=== PATIENT | female | born 1940 | race Caucasian/White ===

== ENCOUNTER 2021-03-15 16:26 | Inpatient (IN) | payer MEDICARE ==
--- NOTE | 2021-03-15 17:14 | CT ---
EXAMINATION TYPE: CT brain wo con DATE OF EXAM: 03/15/2021 COMPARISON: None HISTORY: Right sided facial droop. CT DLP: 1079.8 mGycm Automated exposure control for dose reduction was used. Images of the brain obtained without contrast. There is cerebral cortical atrophy. There is enlargement of the frontal horn right lateral ventricle related to old frontal lobe infarct. There is hypodensity in the right frontal lobe newsome-white matter . There is no mass effect or midline shift. There is no sign of intracranial hemorrhage. The calvariu m is intact. IMPRESSION: Cerebral atrophy. Old right frontal lobe infarct. No acute intracranial abnormality.
--- NOTE | 2021-03-15 17:40 | CT ---
EXAMINATION TYPE: CT angio head neck DATE OF EXAM: 03/15/2021 COMPARISON: None HISTORY: Right sided facial droop. CT DLP: 415 mGycm Automated exposure control for dose reduction was used. CONTRAST: Performed with IV Contrast, patient injected with 65 mL of Isovue 370. Images obtained from the aortic arch to the vertex of the brain without IV contrast. There are Three- D postprocessed images. There is bilateral arterial flow in the subclavian arteries. There is normal branching pattern of the great vessels. There is arterial flow in the common internal and external carotid arteries bilateral ly. There is arterial flow in both vertebral arteries. There is some fusiform stenosis of the right i nternal carotid artery extending from the bifurcation to the [place] of [place]. Lumen is narrowed appr oximately 40% in diameter there is arterial flow in the vertebral basilar artery system. There is james y little flow in the supraclinoid or infraclinoid right internal carotid artery. The anterior cerebra l arteries appear to fill mostly through the anterior communicating artery. There is a very diminutiv e right middle cerebral artery. There is very little arterial flow in the right middle cerebral arter y in the sylvian fissure. There is normal enhancement of the venous sinuses. There is no mass effect. 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 There is decreased size and arterial flow seen in the right middle cerebral artery. There is hemodynamic stenosis. The anterior cerebral arteries a ppear to fill fairly well through the anterior communicating artery from the left side.
[2021-03-15 17:56] LABS: Basophils % (A) 1 %; Eosinophils # (A) 0.2 k/uL (0-0.7); Eosinophils % (A) 2 %; HCT 44.4 % (34.0-46.0); Lymphocytes % (A) 13 %; MCH 30.8 pg (25.0-35.0); MCHC 33.6 g/dL (31.0-37.0); MCV 91.7 fL (80.0-100.0); Mean Platelet Volume 8.8; Monocytes # (A) 0.3 k/uL (0-1.0); Monocytes % (A) 4 %; Neutrophils # (A) 6.1 k/uL (1.3-7.7); Neutrophils % (A) 80 %; Platelet Count 116 k/uL (150-450); RBC 4.85 m/uL (3.80-5.40); WBC 7.6 k/uL (3.8-10.6)
[2021-03-15 18:12] LABS: Albumin 4.1 g/dL (3.5-5.0); Calcium 9.3 mg/dL (8.4-10.2); Total Bilirubin 1.4 mg/dL (0.2-1.3); Total Protein 7.1 g/dL (6.3-8.2)
[2021-03-15 18:13] LABS: Potassium 4.6 mmol/L (3.5-5.1)
[2021-03-15 18:17] LABS: INR 4.6 (<1.2); Partial Thromboplastin Time 45.4 sec (22.0-30.0); Prothrombin Time 44.4 sec (9.0-12.0)
--- NOTE | 2021-03-15 18:17 | ED ---
General Adult HPI - General Chief complaint: Neuro Symptoms/Deficit Stated complaint: TIA Time Seen by Provider: 03/15/21 16:45 Source: EMS Mode of arrival: EMS Limitations: no limitations - History of Present Illness Initial comments: Patient is a 80-year-old female past history of CVA on Coumadin who presents emergency Department with right-sided facial droop. States that approximately 10 AM this morning she noted that the right side of her face was paralyzed. She was having difficulty drinking any water. She does have previous history of strokes was no lasting deficits. Symptoms did not resolve, she called EMS. She has been compliant with her Coumadin. She denies any weakness in her extremities. No aphasia. Admits dysarthria. Denies headache or visual changes. No recent head injuries. No fevers. Denies any chest pain. No other alleviating, precipitating or modifying factors - Related Data Home Medications Medication Instructions Recorded Confirmed SILVER sulfADIAZINE Cream 1 applic TOPICAL DAILY PRN 03/15/21 03/15/21 [Silvadene 1% Cream] Warfarin [Coumadin] 2 mg PO SUTUTHSA@1800 03/15/21 03/15/21 Warfarin [Coumadin] 3 mg PO MOWEFR@1800 03/15/21 03/15/21 Cetirizine HCl [Zyrtec] 10 mg PO DAILY 03/16/21 03/16/21 Allergies Allergy/AdvReac Type Severity Reaction Status Date / Time No Known Allergies Allergy Verified 03/15/21 17:56 Review of Systems ROS Statement: Those systems with pertinent positive or pertinent negative responses have been documented in the HPI. ROS Other: All systems not noted in ROS Statement are negative. Past Medical History History of Any Multi-Drug Resistant Organisms: None Reported Past Psychological History: No Psychological Hx Reported Smoking Status: Never smoker Past Alcohol Use History: None Reported Past Drug Use History: None Reported - Past Family History Father History Unknown: Yes Additional Family Medical History / Comment(s): father committed suicide. Mother Family Medical History: Deep Vein Thrombosis (DVT) General Exam Limitations: no limitations General appearance: alert, in no apparent distress Head exam: Present: atraumatic Eye exam: Present: normal appearance, PERRL, EOMI. Absent: scleral icterus, conjunctival injection, periorbital swelling ENT exam: Present: normal exam, mucous membranes moist Neck exam: Present: normal inspection. Absent: tenderness, meningismus, lymphadenopathy Respiratory exam: Present: normal lung sounds bilaterally. Absent: respiratory distress, wheezes, rales, rhonchi, stridor Cardiovascular Exam: Present: regular rate, normal rhythm, normal heart sounds. Absent: systolic murmur, diastolic murmur, rubs, gallop, clicks GI/Abdominal exam: Present: soft, normal bowel sounds. Absent: distended, tenderness, guarding, rebound, rigid Extremities exam: Present: normal inspection, full ROM, normal capillary refill. Absent: tenderness, pedal edema, joint swelling, calf tenderness Back exam: Present: normal inspection Neurological exam: Present: alert, oriented X3, other (complete paresis of right upper and lower face. Inability to close right eye. dysarthria secondary to facial droop) Psychiatric exam: Present: normal affect, normal mood Skin exam: Present: warm, dry, intact, normal color. Absent: rash Course Vital Signs 03/15/21 03/15/21 03/15/21 16:45 16:50 17:00 Temperature 98.8 F 98.7 F 98.7 F Pulse Rate 98 101 H 101 H Pulse Rate [ Pulse Oximetery ] Respiratory 18 18 18 Rate Blood Pressure 151/70 164/73 149/77 Blood Pressure [Right Arm] O2 Sat by Pulse 97 96 96 Oximetry 03/15/21 03/15/21 03/15/21 17:15 17:30 17:45 Temperature 98.8 F 98.8 F 98.8 F Pulse Rate 103 H 101 H 98 Pulse Rate [ Pulse Oximetery ] Respiratory 18 18 18 Rate Blood Pressure 101/75 154/76 152/82 Blood Pressure [Right Arm] O2 Sat by Pulse 96 96 96 Oximetry 03/15/21 03/15/21 03/16/21 18:45 22:00 03:40 Temperature 98.8 F Pulse Rate 102 H 96 89 Pulse Rate [ Pulse Oximetery ] Respiratory 18 16 16 Rate Blood Pressure 152/84 169/89 136/71 Blood Pressure [Right Arm] O2 Sat by Pulse 96 97 96 Oximetry 03/16/21 07:43 Temperature 98.2 F Pulse Rate Pulse Rate [ 98 Pulse Oximetery ] Respiratory 16 Rate Blood Pressure Blood Pressure 130/72 [Right Arm] O2 Sat by Pulse 95 Oximetry EKG Findings - EKG Comments: EKG Findings:: EKG demonstrates sinus tachycardia with a ventricular rate of 102. MA interval 128. QRS 78. QTC of 435. No acute ST segment elevations or depressions concerning for ischemic changes Medical Decision Making - Medical Decision Making Arrival patient is placed into trauma 3. A thorough history and physical exam is performed. Patient does have an NIH of 4 due to dysarthria and right-sided facial droop. She is immediately taken to CT for angiography. This is reviewed. INR is subtherapeutic at 4.6. Troponin 0.065. 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 Decreased size and arterial flow seen in the right middle cerebral artery. I did discuss these results with Dr. Oconnell. Recommend aspirin, holding the patient's Coumadin and admission for neurology consultation. States that there is no acute emergency and the patient is not a TPA candidate due to being outside the window. This is discussed with the patient. 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 Patient is currently awaiting a bed on the floor. Spoke with Dr. delarosa who agreed to admission - Lab Data Result diagrams: 03/16/21 09:01 03/16/21 09:01 Lab Results 03/15/21 03/15/21 03/15/21 Range/Units 17:48 17:48 17:48 WBC 7.6 (3.8-10.6) k/uL RBC 4.85 (3.80-5.40) m/uL Hgb 15.0 (11.4-16.0) gm/dL Hct 44.4 (34.0-46.0) % MCV 91.7 (80.0-100.0) fL MCH 30.8 (25.0-35.0) pg MCHC 33.6 (31.0-37.0) g/dL RDW 15.0 (11.5-15.5) % Plt Count 116 L (150-450) k/uL MPV 8.8 Neutrophils % 80 % Lymphocytes % 13 % Monocytes % 4 % Eosinophils % 2 % Basophils % 1 % Neutrophils # 6.1 (1.3-7.7) k/uL Lymphocytes # 1.0 (1.0-4.8) k/uL Monocytes # 0.3 (0-1.0) k/uL Eosinophils # 0.2 (0-0.7) k/uL Basophils # 0.0 (0-0.2) k/uL PT 44.4 H (9.0-12.0) sec INR 4.6 H (<1.2) APTT 45.4 H (22.0-30.0) sec Sodium 142 (137-145) mmol/L Potassium 4.6 (3.5-5.1) mmol/L Chloride 106 (98-107) mmol/L Carbon Dioxide 26 (22-30) mmol/L Anion Gap 10 mmol/L BUN 15 (7-17) mg/dL Creatinine 1.00 (0.52-1.04) mg/dL Est GFR (CKD-EPI)AfAm 62 (>60 ml/min/1.73 sqM) Est GFR (CKD-EPI)NonAf 54 (>60 ml/min/1.73 sqM) Glucose 103 H (74-99) mg/dL Calcium 9.3 (8.4-10.2) mg/dL Total Bilirubin 1.4 H (0.2-1.3) mg/dL AST 34 (14-36) U/L ALT 15 (4-34) U/L Alkaline Phosphatase 71 (38-126) U/L Troponin I (0.000-0.034) ng/mL Total Protein 7.1 (6.3-8.2) g/dL Albumin 4.1 (3.5-5.0) g/dL Triglycerides (0.00-149.00) mg/dL Cholesterol (0.00-200.00) mg/dL LDL Cholesterol, Calc (0.0-131.0) mg/dL VLDL Cholesterol, Calc (5.00-40.00) mg/dL HDL Cholesterol (40.00-60.00) mg/dL Cholesterol/HDL Ratio Ratio Anti-Cardiolipin IgG Ab U/mL Cardiolipin IgG Interp (NEGATIVE) Anti-Cardiolipin IgA Ab U/mL Cardiolipin IgA Interp (NEGATIVE) Anti-Cardiolipin IgM Ab U/mL Cardiolipin IgM Interp (NEGATIVE) Coronavirus (PCR) (Not Detectd) 03/15/21 03/15/21 03/15/21 Range/Units 17:48 20:10 20:47 WBC (3.8-10.6) k/uL RBC (3.80-5.40) m/uL Hgb (11.4-16.0) gm/dL Hct (34.0-46.0) % MCV (80.0-100.0) fL MCH (25.0-35.0) pg MCHC (31.0-37.0) g/dL RDW (11.5-15.5) % Plt Count (150-450) k/uL MPV Neutrophils % % Lymphocytes % % Monocytes % % Eosinophils % % Basophils % % Neutrophils # (1.3-7.7) k/uL Lymphocytes # (1.0-4.8) k/uL Monocytes # (0-1.0) k/uL Eosinophils # (0-0.7) k/uL Basophils # (0-0.2) k/uL PT (9.0-12.0) sec INR (<1.2) APTT (22.0-30.0) sec Sodium (137-145) mmol/L Potassium (3.5-5.1) mmol/L Chloride (98-107) mmol/L Carbon Dioxide (22-30) mmol/L Anion Gap mmol/L BUN (7-17) mg/dL Creatinine (0.52-1.04) mg/dL Est GFR (CKD-EPI)AfAm (>60 ml/min/1.73 sqM) Est GFR (CKD-EPI)NonAf (>60 ml/min/1.73 sqM) Glucose (74-99) mg/dL Calcium (8.4-10.2) mg/dL Total Bilirubin (0.2-1.3) mg/dL AST (14-36) U/L ALT (4-34) U/L Alkaline Phosphatase (38-126) U/L Troponin I 0.065 H* 0.114 H* (0.000-0.034) ng/mL Total Protein (6.3-8.2) g/dL Albumin (3.5-5.0) g/dL Triglycerides (0.00-149.00) mg/dL Cholesterol (0.00-200.00) mg/dL LDL Cholesterol, Calc (0.0-131.0) mg/dL VLDL Cholesterol, Calc (5.00-40.00) mg/dL HDL Cholesterol (40.00-60.00) mg/dL Cholesterol/HDL Ratio Ratio Anti-Cardiolipin IgG Ab U/mL Cardiolipin IgG Interp (NEGATIVE) Anti-Cardiolipin IgA Ab U/mL Cardiolipin IgA Interp (NEGATIVE) Anti-Cardiolipin IgM Ab U/mL Cardiolipin IgM Interp (NEGATIVE) Coronavirus (PCR) Not Detected (Not Detectd) 03/16/21 03/16/21 03/16/21 Range/Units 09:01 09:01 09:01 WBC 6.3 (3.8-10.6) k/uL RBC 4.83 (3.80-5.40) m/uL Hgb 15.1 (11.4-16.0) gm/dL Hct 45.2 (34.0-46.0) % MCV 93.6 (80.0-100.0) fL MCH 31.3 (25.0-35.0) pg MCHC 33.4 (31.0-37.0) g/dL RDW 15.3 (11.5-15.5) % Plt Count 133 L (150-450) k/uL MPV 8.1 Neutrophils % 86 % Lymphocytes % 11 % Monocytes % 3 % Eosinophils % 0 % Basophils % 0 % Neutrophils # 5.4 (1.3-7.7) k/uL Lymphocytes # 0.7 L (1.0-4.8) k/uL Monocytes # 0.2 (0-1.0) k/uL Eosinophils # 0.0 (0-0.7) k/uL Basophils # 0.0 (0-0.2) k/uL PT 34.8 H (9.0-12.0) sec INR 3.6 H (<1.2) APTT (22.0-30.0) sec Sodium 140 (137-145) mmol/L Potassium 4.2 (3.5-5.1) mmol/L Chloride 109 H (98-107) mmol/L Carbon Dioxide 25 (22-30) mmol/L Anion Gap 6 mmol/L BUN 17 (7-17) mg/dL Creatinine 0.86 (0.52-1.04) mg/dL Est GFR (CKD-EPI)AfAm 75 (>60 ml/min/1.73 sqM) Est GFR (CKD-EPI)NonAf 65 (>60 ml/min/1.73 sqM) Glucose 132 H (74-99) mg/dL Calcium 9.2 (8.4-10.2) mg/dL Total Bilirubin (0.2-1.3) mg/dL AST (14-36) U/L ALT (4-34) U/L Alkaline Phosphatase (38-126) U/L Troponin I (0.000-0.034) ng/mL Total Protein (6.3-8.2) g/dL Albumin (3.5-5.0) g/dL Triglycerides 60.90 (0.00-149.00) mg/dL Cholesterol 160.00 (0.00-200.00) mg/dL LDL Cholesterol, Calc 90.8 (0.0-131.0) mg/dL VLDL Cholesterol, Calc 12.18 (5.00-40.00) mg/dL HDL Cholesterol 57.00 (40.00-60.00) mg/dL Cholesterol/HDL Ratio 2.81 Ratio Anti-Cardiolipin IgG Ab U/mL Cardiolipin IgG Interp (NEGATIVE) Anti-Cardiolipin IgA Ab U/mL Cardiolipin IgA Interp (NEGATIVE) Anti-Cardiolipin IgM Ab U/mL Cardiolipin IgM Interp (NEGATIVE) Coronavirus (PCR) (Not Detectd) 03/17/21 03/17/21 Range/Units 06:35 06:35 WBC (3.8-10.6) k/uL RBC (3.80-5.40) m/uL Hgb (11.4-16.0) gm/dL Hct (34.0-46.0) % MCV (80.0-100.0) fL MCH (25.0-35.0) pg MCHC (31.0-37.0) g/dL RDW (11.5-15.5) % Plt Count (150-450) k/uL MPV Neutrophils % % Lymphocytes % % Monocytes % % Eosinophils % % Basophils % % Neutrophils # (1.3-7.7) k/uL Lymphocytes # (1.0-4.8) k/uL Monocytes # (0-1.0) k/uL Eosinophils # (0-0.7) k/uL Basophils # (0-0.2) k/uL PT 32.0 H (9.0-12.0) sec INR 3.3 H (<1.2) APTT (22.0-30.0) sec Sodium (137-145) mmol/L Potassium (3.5-5.1) mmol/L Chloride (98-107) mmol/L Carbon Dioxide (22-30) mmol/L Anion Gap mmol/L BUN (7-17) mg/dL Creatinine (0.52-1.04) mg/dL Est GFR (CKD-EPI)AfAm (>60 ml/min/1.73 sqM) Est GFR (CKD-EPI)NonAf (>60 ml/min/1.73 sqM) Glucose (74-99) mg/dL Calcium (8.4-10.2) mg/dL Total Bilirubin (0.2-1.3) mg/dL AST (14-36) U/L ALT (4-34) U/L Alkaline Phosphatase (38-126) U/L Troponin I (0.000-0.034) ng/mL Total Protein (6.3-8.2) g/dL Albumin (3.5-5.0) g/dL Triglycerides (0.00-149.00) mg/dL Cholesterol (0.00-200.00) mg/dL LDL Cholesterol, Calc (0.0-131.0) mg/dL VLDL Cholesterol, Calc (5.00-40.00) mg/dL HDL Cholesterol (40.00-60.00) mg/dL Cholesterol/HDL Ratio Ratio Anti-Cardiolipin IgG Ab 77.9 U/mL Cardiolipin IgG Interp Positive A (NEGATIVE) Anti-Cardiolipin IgA Ab 18.8 U/mL Cardiolipin IgA Interp NEGATIVE (NEGATIVE) Anti-Cardiolipin IgM Ab 2.3 U/mL Cardiolipin IgM Interp NEGATIVE (NEGATIVE) Coronavirus (PCR) (Not Detectd) Critical Care Time Critical Care Time: Yes Critical Care Time: 32 minutes Disposition Clinical Impression: History of CVA (cerebrovascular accident), Facial droop, Reid palsy Disposition: ADMITTED IP TO THIS [facility] Condition: Stable Is patient prescribed a controlled substance at d/c from ED?: No Decision to Admit Reason: Admit from EC Decision Date: 03/15/21 Decision Time: 19:38
--- NOTE | 2021-03-15 18:46 | XR ---
EXAMINATION TYPE: XR chest 2V DATE OF EXAM: 03/15/2021 COMPARISON: NONE HISTORY: Altered mental status TECHNIQUE: 2 views FINDINGS: There is no heart failure nor confluent pneumonic infiltrate. Costophrenic angles are clear . There are no hilar masses. There are chest leads. IMPRESSION: No active cardiopulmonary disease. Normal heart.
[2021-03-15] MEDS ORDERED: NALOXONE 0.4 MG/ML 1 ML VIAL IV PRN (19:38)
[2021-03-15] MEDS: ASPIRIN 325 MG TAB PO STA ×2 (20:45→20:51)
[2021-03-15] MEDS: predniSONE 20 MG TAB PO SCH (20:45)
[2021-03-15] MEDS: ATORVASTATIN 40 MG TAB PO SCH (20:45)
[2021-03-15] MEDS: valACYclovir HCL 1,000 MG TABLET PO SCH (23:27)
[2021-03-16] MEDS ORDERED: ACETAMINOPHEN TAB 325 MG TAB PO STA (00:25)
[2021-03-16] MEDS: LORATADINE 10 MG TAB PO PRN ×2 (05:46→09:43)
[2021-03-16] MEDS ORDERED: hydrALAZINE HCL 20 MG/ML 1 ML VIAL IVP STA (08:29)
[2021-03-16] MEDS ORDERED: ASPIRIN 325 MG TAB PO SCH (09:00)
[2021-03-16 09:25] LABS: Basophils % (A) 0 %; Eosinophils % (A) 0 %; HCT 45.2 % (34.0-46.0); HGB 15.1 gm/dL (11.4-16.0); Lymphocytes # (A) 0.7 k/uL (1.0-4.8); Lymphocytes % (A) 11 %; MCH 31.3 pg (25.0-35.0); MCHC 33.4 g/dL (31.0-37.0); MCV 93.6 fL (80.0-100.0); Mean Platelet Volume 8.1; Monocytes # (A) 0.2 k/uL (0-1.0); Monocytes % (A) 3 %; Neutrophils # (A) 5.4 k/uL (1.3-7.7); Neutrophils % (A) 86 %; Platelet Count 133 k/uL (150-450); RBC 4.83 m/uL (3.80-5.40); RDW 15.3 % (11.5-15.5); WBC 6.3 k/uL (3.8-10.6)
[2021-03-16 09:43] LABS: INR 3.6 (<1.2); Prothrombin Time 34.8 sec (9.0-12.0)
[2021-03-16] MEDS: valACYclovir HCL 1,000 MG TABLET PO SCH ×2 (09:43→19:45)
[2021-03-16] MEDS: ATORVASTATIN 40 MG TAB PO SCH (09:43)
[2021-03-16] MEDS: predniSONE 20 MG TAB PO SCH (09:44)
[2021-03-16 09:47] LABS: African American GFR (CKD) 75 (>60 ml/min/1.73 sqM); Anion Gap 6 mmol/L; Blood Urea Nitrogen 17 mg/dL (7-17); Calcium 9.2 mg/dL (8.4-10.2); Carbon Dioxide 25 mmol/L (22-30); Chloride 109 mmol/L (98-107); Glucose 132 mg/dL (74-99); Non-African American GFR(CKD) 65 (>60 ml/min/1.73 sqM); Potassium 4.2 mmol/L (3.5-5.1); Sodium 140 mmol/L (137-145)
--- NOTE | 2021-03-16 10:11 | US ---
EXAMINATION TYPE: US carotid duplex BILAT DATE OF EXAM: 03/16/2021 COMPARISON: 03/15/21 CT angiography head and neck (showing moderate diffuse stenosis in the right ICA). CLINICAL HISTORY: 80-year-old female carotid stenosis. Patient states hx of stroke TECHNIQUE: Carotid duplex ultrasound examination. A Bailey Doppler criteria was utilized. EXAM MEASUREMENTS: RIGHT: Peak Systolic Velocity (PSV) cm/sec ----- Right CCA: 85.7 ----- Right ICA: 119.9 ----- Right ECA: 219.5 ICA/CCA ratio: 1.4 RIGHT: End Diastole cm/sec ----- Right CCA: 9.8 ----- Right ICA: 23.4 ----- Right ECA: 28.8 LEFT: Peak Systolic Velocity (PSV) cm/sec ----- Left CCA: 69.1 ----- Left ICA: 115.9 ----- Left ECA: 124.0 ICA/CCA ratio: 1.7 LEFT: End Diastole cm/sec ----- Left CCA: 13.1 ----- Left ICA: 35.2 ----- Left ECA: 19.5 VERTEBRALS (direction of flow): Right Vertebral: Antegrade Left Vertebral: Antegrade Rhythm: Normal Fire Inspector notes: Difficult exam due to tortuous vessels creating possible false velocities; elevate d velocities are seen especially in the right ECA. IMPRESSION: 1. Technically difficult exam. By indirect Doppler criteria, no hemodynamically significant internal carotid artery stenosis is seen on either side. Elevated velocities in the right ECA may be artifactu al due to vessel tortuosity. 2. Incidentally, we note a 3.3 cm nodule of the thyroid gland on the patient's recent CTA. Dedicated thyroid ultrasound to further evaluate. Criteria for Assigning % of Stenosis / Diameter reduction (Estimation based on the indirect measurements of the internal carotid artery velocities (ICA PSV). 1. Normal (no stenosis)=ICA PSV < 125 cm/s: ratio < 2.0: ICA EDV<40 cm/s. 2. Less than 50% stenosis=ICA PSV < 125 cm/s: ratio < 2.0: ICA EDV<40 cm/s. 3. 50 to 69% stenosis=ICA PSV of 125 to 230 cm/s: ration 2.0 ? 4.0: ICA EDV 40-100 cm/s. 4. Greater than 70% stenosis to near occlusion= ICA PSV > 230 cm/s: ratio > 4.0: ICA EDV > 100 cm/s. 5. Near occlusion= ICA PSV velocities may be low or undetectable: variable ratio and ICA EDV. 6. Total occlusion=unable to detect flow.
--- NOTE | 2021-03-16 10:28 | P.CNNES ---
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 Patient presents to our facility on 03/15/2021 at the 16:26. Patient symptoms began at 10 AM on 03/15/2021. She was having difficulty drinking and fluid was spinning down her right side mouth. Otherwise she denies any weakness, any difficulty getting her words out, any visual change. She denies of any headache. She denies of any the recent infection, any fever, any ringing in the ears or hearing loss. She is on the home medication of Coumadin for her lupus. According to the patient that she was diagnosed with lupus for more than 20 years now and she did not Coumadin. She cannot tell me who she follows up with regarding her lupus but she told me she had blood test and it was confirmed that she had lupus. She said that she had the 2 strokes 1 1999 and another one in 2002 and she had left-sided weakness that resolved. Patient states that that she uses a walker to walk around because she had the history of falls. She said that she also has skin cancer and she had a resection on the right side but she has not followed up with anybody. Upon asking if she is following up with the manager telecom/oncologist she stated that she has been followed up with somebody in a while and she could not provide me with the name of the person that she was on follow-up in the past. He is not on any statins. Patient denies of tobacco use. She denies of followed up with a neurologist. Some of the workup in the hospital consisted of: Initial vital signs his blood pressure of 151/70, heart rate of 98, respiratory of 18, temperature of 98.8 Fahrenheit oral and pulse ox of 97% at room air. The platelet is 116,000 otherwise CBC with differential is unremarkable Chemistry panel is unremarkable. The troponin is the slightly elevated is 0.065 the repeat is 0.114. AST is 34 ALTs 15. Cueto virus patient are not detected. PT is 44.4, INR is 4.6 and PTT is 45.4. INR is supratherapeutic CT of the head is reported as cerebral atrophy at. Old right frontal lobe infarct. No acute intracranial abnormality. I personally reviewed the CT of the head and I agree the patient had right frontal encephalomalacia with the hydrocephalus over the right lateral ventricle mostly anterior. I do not appreciate any acute or subacute ischemic stroke or any intraparenchymal hemorrhage. EtOH angiography of the head and neck was reported as moderate diffuse stenosis of the entire right internal carotid artery and very little flow seen in the intracranial right internal carotid artery. There is decreased size and arterial flow in the right middle cerebral artery at. There is hemodynamic s tenosis. It is anterior cerebral artery appears to fill fairly well to the anterior communicating artery from the left side. Stroke code was activated by the ED team. Per the ED team the patient NIH was a 4 due to dysarthria and right facial droop. The ED team spoke with the stroke attending (Dr. Huntley), and he recommended the to hold the Coumadin and start the patient on aspirin. No TPA since outside the window. 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 Review of Systems Review of system: The 12 point system was reviewed and apparent positive and negative per HPI. Past Medical History History of Any Multi-Drug Resistant Organisms: None Reported Past Psychological History: No Psychological Hx Reported Smoking Status: Never smoker Past Alcohol Use History: None Reported Past Drug Use History: None Reported - Past Family History Father History Unknown: Yes Additional Family Medical History / Comment(s): father committed suicide. Mother Family Medical History: Deep Vein Thrombosis (DVT) Medications and Allergies Home Medications Medication Instructions Recorded Confirmed Type SILVER sulfADIAZINE Cream 1 applic TOPICAL DAILY PRN 03/15/21 03/15/21 History [Silvadene 1% Cream] Warfarin [Coumadin] 2 mg PO SUTUTHSA@1800 03/15/21 03/15/21 History Warfarin [Coumadin] 3 mg PO MOWEFR@1800 03/15/21 03/15/21 History Cetirizine HCl [Zyrtec] 10 mg PO DAILY 03/16/21 03/16/21 History Allergies Allergy/AdvReac Type Severity Reaction Status Date / Time No Known Allergies Allergy Verified 03/15/21 17:56 Physical Examination - Vital Signs Vital Signs: Vital Signs Temp Pulse Pulse Resp BP BP Pulse Ox 03/16/21 07:43 98.2 F 98 16 130/72 95 03/16/21 03:40 89 16 136/71 96 03/15/21 22:00 96 16 169/89 97 03/15/21 18:45 98.8 F 102 H 18 152/84 96 03/15/21 17:45 98.8 F 98 18 152/82 96 03/15/21 17:30 98.8 F 101 H 18 154/76 96 03/15/21 17:15 98.8 F 103 H 18 101/75 96 03/15/21 17:00 98.7 F 101 H 18 149/77 96 03/15/21 16:50 98.7 F 101 H 18 164/73 96 03/15/21 16:45 98.8 F 98 18 151/70 97 Intake and Output 03/15/21 03/16/21 03/16/21 22:59 06:59 14:59 Other: Weight 97.976 kg GENERAL: The patient is lying in bed and is not in acute distress. CHEST: The heart rate is regular rate rhythm. No murmurs to auscultation. No carotid bruit bilaterally. LUNG: Clear to auscultation bilaterally no wheezing noted throughout. Not labored breathing. ABDOMEN/GI: Bowel sounds present in all 4 quadrants. No tenderness to palpation throughout. INTEGUMENTARY: Right V1 to lateral side of eye, right lateral frontal has old skin blakish discoloration that is raised (stated has old hx of skin cancer and was resected). NEUROLOGICAL: Higher mental function: The patient is awake, alert, oriented to self, place and time. Patient is following commands. No aphasia and no neglect. Cranial nerves: The pupils are round, equal and reactive to light. Visual silva are full to confrontation throughout. Extraocular movement is intact no nystagmus is noted. Facial sensation is decreased over right V2 to touch, otherwise normal. The facial strength is right upper and lower facial weakness. Hearing is mildly decreased bilaterally to hand rub. Tongue is midline and moved [id number] without any difficulty. No dysarthria is noted. Shoulder shrug is normal bilaterally. Motor: The strength is 5 over 5 throughout. Normal tone and bulk. Cerebellum: Normal finger to nose bilaterally. Sensation: Sensation is normal to touch throughout. Reflexes (right/left): 3+ over bilateral brachioradialis, 1+ ankles bilaterally, otherwise 2+ throughout. Plantars is upgoing over the left but mute over the right. Results - Laboratory Findings CBC and BMP: 03/16/21 09:01 03/16/21 09:01 Abnormal Lab Findings: Abnormal Labs 03/15/21 03/15/21 03/15/21 17:48 17:48 17:48 Plt Count 116 L PT 44.4 H INR 4.6 H APTT 45.4 H Glucose 103 H Total Bilirubin 1.4 H Troponin I 03/15/21 03/15/21 17:48 20:47 Plt Count PT INR APTT Glucose Total Bilirubin Troponin I 0.065 H* 0.114 H* Assessment and Plan Assessment: Acute right facial weakness. Possible stroke vs Reid's Balsy. 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 * In the ED the patient was given aspirin 325mg once and was started on aspirin 325mg daily. Coumadin is held for now and will wait for result of MRI Brain. I will see if the patient truly has lupus (consulted Hematology team) for anticoagulation use to be continued. I feel that the Coumadin can be switched to Eliquis since the there is no need to monitor labs with Eliquis. But we'll get more details regarding the patient's falls and if she has significant falls there is a higher risk of the bleed from falls. * Currently the patient is on Lipitor 40 mg daily for secondary stroke prophylaxis * Lipid panel is ordered and is pending I ordered 2-D echo * The ED team started the patient on prednisone 60 mg daily and valacyclovir thousand milligram 1 tablet tid for concern of reid's palsy. * Continue neuro checks * On cardiac monitoring. So far no A-fib or flutter. * PT, OT and ASSOCIATE SCIENTIST are consulted * Consulted Heme/Oncology team for lupus and hx of skin cancer * Notified nurse to obtain eye patch for her right eye and eye lubricants to avoid corneal ulcer. * We'll defer the rest of the medical management to the primary team. * For DVT prophylaxis the patient INR supratherapeutic but once is become therapeutic recommend the subcu heparin or Lovenox will defer the management to the primary team. For now recommend SCDs. The plan is discussed with the patient's nurse. Thank you for the consultation. Kuldip Lainez M.D. Neuro-Hospitalist Time with Patient: Greater than 30
[2021-03-16] MEDS: SODIUM CHLORIDE 5% OPHTH OINT 3.5 GM TUBE RIGHT EYE SCH ×2 (12:30→19:47)
--- NOTE | 2021-03-16 14:40 | P.GSCN ---
History of Present Illness Consult date: 03/16/21 Reason for Consult: Carotid stenosis Requesting physician: Kuldip Lainez History of present illness: This is a 80-year-old white female who presented to the emergency room with complaints of right facial droopiness and paralysis. She has a past medical history including Lupus, skin cancer, DVT, and CVA/TIA with her first one being in 1999 and her last one being and 2002. She states her previous strokes affected her left side which had resolved, however she states she does still have some difficulty with getting her thoughts out at times. She dates that she was told in the past her strokes were related to her lupus. 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 Code stroke was a ctivated by the emergency department, Coumadin was held and patient was started on aspirin, TPA was not initiated as it was outside the window. Patient was also started on steroids and valacyclovir due to concern for possible Reid's palsy. Patient continues to have right facial droop and paralysis to right side of face. She denies any bilateral upper or lower extremity weakness. She is alert and oriented 3. She is able to follow commands. She is answering questions appropriately. Imaging CT brain shows cerebral atrophy. Old right frontal lobe infarct. No acute intracranial abnormality CT angiogram head and neck shows moderate diffuse stenosis of the entire right internal carotid artery and very little flow seen in the intracranial right internal carotid artery. There is decreased size and arterial flow seen in the right middle cerebral artery. There is hemodynamic stenosis. The anterior cerebral arteries appear to fill fairly well through the anterior communicating artery from the left side Carotid duplex shows right ICA PSV 119.9 ICA/CCA ratio 1.4, left ICA PSV 115.9 ICA/CCA ratio 1.7 reported as technically difficult exam. By indirect Doppler criteria no hemodynamically significant internal carotid artery stenosis seen on either side. Elevated velocities in the right ECA may be artifactual due to vessel tortuosity. Review of Systems A 14 point review of systems was completed all pertinent positives and negatives as stated in the HPI Past Medical History History of Any Multi-Drug Resistant Organisms: None Reported Past Psychological History: No Psychological Hx Reported Smoking Status: Never smoker Past Alcohol Use History: None Reported Past Drug Use History: None Reported - Past Family History Father History Unknown: Yes Additional Family Medical History / Comment(s): father committed suicide. Mother Family Medical History: Deep Vein Thrombosis (DVT) Medications and Allergies Home Medications Medication Instructions Recorded Confirmed Type SILVER sulfADIAZINE Cream 1 applic TOPICAL DAILY PRN 03/15/21 03/15/21 History [Silvadene 1% Cream] Warfarin [Coumadin] 2 mg PO SUTUTHSA@1800 03/15/21 03/15/21 History Warfarin [Coumadin] 3 mg PO MOWEFR@1800 03/15/21 03/15/21 History Cetirizine HCl [Zyrtec] 10 mg PO DAILY 03/16/21 03/16/21 History Allergies Allergy/AdvReac Type Severity Reaction Status Date / Time No Known Allergies Allergy Verified 03/15/21 17:56 Surgical - Exam Vital Signs Temp Pulse Resp BP Pulse Ox 98.8 F 98 18 151/70 97 03/15/21 16:45 03/15/21 16:45 03/15/21 16:45 03/15/21 16:45 03/15/21 16:45 General appearance: The patient is alert, oriented, appears in no acute distress. HET: Head is normocephalic and atraumatic. Pupils are equal and reactive. Facial asymmetry, right facial droop, tongue protrudes midline. Patient unable to raise right eyebrow. Neck: Supkeeps going to ple without lymphadenopathy. Trachea midline. No audible carotid bruit bilateral Heart: S1 S2. Regular rate and rhythm. Lungs: Clear to auscultation. No crackles or wheezes are heard. Abdomen: Soft, nontender, nondistended with bowel sounds. No peritoneal signs. No palpable organomegaly or masses. Extremities: Normal skin color and turgor. No cyanosis, rash, ulceration, clubbing, or edema. Radial and pedal pulses are 2/4 bilaterally. NeurologicaFacial asymmetry, right facial droop with upper and lower facial weakness. Patient is alert and oriented 3. Able to follow commands, speech is fluent. Strength and sensation are grossly intact. Results - Labs 03/16/21 09:01 03/16/21 09:01 Abnormal Lab Results - Last 24 Hours (Table) 03/15/21 03/15/21 03/15/21 Range/Units 17:48 17:48 17:48 Plt Count 116 L (150-450) k/uL Lymphocytes # (1.0-4.8) k/uL PT 44.4 H (9.0-12.0) sec INR 4.6 H (<1.2) APTT 45.4 H (22.0-30.0) sec Chloride (98-107) mmol/L Glucose 103 H (74-99) mg/dL Total Bilirubin 1.4 H (0.2-1.3) mg/dL Troponin I (0.000-0.034) ng/mL 03/15/21 03/15/21 03/16/21 Range/Units 17:48 20:47 09:01 Plt Count (150-450) k/uL Lymphocytes # (1.0-4.8) k/uL PT 34.8 H (9.0-12.0) sec INR 3.6 H (<1.2) APTT (22.0-30.0) sec Chloride (98-107) mmol/L Glucose (74-99) mg/dL Total Bilirubin (0.2-1.3) mg/dL Troponin I 0.065 H* 0.114 H* (0.000-0.034) ng/mL 03/16/21 03/16/21 Range/Units 09:01 09:01 Plt Count 133 L (150-450) k/uL Lymphocytes # 0.7 L (1.0-4.8) k/uL PT (9.0-12.0) sec INR (<1.2) APTT (22.0-30.0) sec Chloride 109 H (98-107) mmol/L Glucose 132 H (74-99) mg/dL Total Bilirubin (0.2-1.3) mg/dL Troponin I (0.000-0.034) ng/mL Diabetes panel 03/15/21 03/16/21 Range/Units 17:48 09:01 Sodium 142 140 (137-145) mmol/L Potassium 4.6 4.2 (3.5-5.1) mmol/L Chloride 106 109 H (98-107) mmol/L Carbon Dioxide 26 25 (22-30) mmol/L BUN 15 17 (7-17) mg/dL Creatinine 1.00 0.86 (0.52-1.04) mg/dL Glucose 103 H 132 H (74-99) mg/dL Calcium 9.3 9.2 (8.4-10.2) mg/dL AST 34 (14-36) U/L ALT 15 (4-34) U/L Alkaline Phosphatase 71 (38-126) U/L Total Protein 7.1 (6.3-8.2) g/dL Albumin 4.1 (3.5-5.0) g/dL Calcium panel 03/15/21 03/16/21 Range/Units 17:48 09:01 Calcium 9.3 9.2 (8.4-10.2) mg/dL Albumin 4.1 (3.5-5.0) g/dL Pituitary panel 03/15/21 03/16/21 Range/Units 17:48 09:01 Sodium 142 140 (137-145) mmol/L Potassium 4.6 4.2 (3.5-5.1) mmol/L Chloride 106 109 H (98-107) mmol/L Carbon Dioxide 26 25 (22-30) mmol/L BUN 15 17 (7-17) mg/dL Creatinine 1.00 0.86 (0.52-1.04) mg/dL Glucose 103 H 132 H (74-99) mg/dL Calcium 9.3 9.2 (8.4-10.2) mg/dL Adrenal panel 03/15/21 03/16/21 Range/Units 17:48 09:01 Sodium 142 140 (137-145) mmol/L Potassium 4.6 4.2 (3.5-5.1) mmol/L Chloride 106 109 H (98-107) mmol/L Carbon Dioxide 26 25 (22-30) mmol/L BUN 15 17 (7-17) mg/dL Creatinine 1.00 0.86 (0.52-1.04) mg/dL Glucose 103 H 132 H (74-99) mg/dL Calcium 9.3 9.2 (8.4-10.2) mg/dL Total Bilirubin 1.4 H (0.2-1.3) mg/dL AST 34 (14-36) U/L ALT 15 (4-34) U/L Alkaline Phosphatase 71 (38-126) U/L Total Protein 7.1 (6.3-8.2) g/dL Albumin 4.1 (3.5-5.0) g/dL - Imaging Comments: CT brain reviewed CTA head and neck reviewed Carotid duplex reviewed Assessment and Plan Assessment: 1. Acute right facial droop, rule out stroke versus Reid's palsy 2. No hemodynamically significant internal carotid stenosis per carotid duplex and direct visualization of CT angiogram 3. Supratherapeutic INR on coumadin, held 3. History of CVA with no residual focal deficits 4. History of lupus on Coumadin 5. History of bilateral DVTs Plan: 1. Continue symptomatic and supportive care 2. Continue further workup per neurology 3. Carotid duplex and CT angiogram of head and neck reviewed with no evidence of hemodynamically significant internal carotid artery stenosis 4. Continue statin 5. Defer anticoagulation to neurology and medicine team 6. PT OT on consult 7. No indication for any vascular surgical intervention at this time. Recommend outpatient surveillance. Thank you for this kind referral and the opportunity to participate in the care of your patient. The impression and plan of care has been dictated as directed. Dr. Avila I performed a history and examination of this patient, discussed the same with the dictator. I agree with the dictator's note ,documented as a scribe. Any additional findings or plans will be noted.
[2021-03-16 15:02] LABS: Chol/HDL Ratio 2.81 Ratio; LDL Cholesterol,Calculated 90.8 mg/dL (0.0-131.0); VLDL Calculation 12.18 mg/dL (5.00-40.00)
--- NOTE | 2021-03-16 15:55 | FL ---
EXAMINATION TYPE: FL barium swallow DATE OF EXAM: 03/16/2021 CLINICAL INDICATION: 80-year-old female intermittent chronic trouble with swallowing. Patient being t reated for Reid's palsy. COMPARISON: None Total Fluoroscopy Time: 1 minute 38 seconds 46 images obtained. FINDINGS: The swallowing mechanism is normal. There is moderate hypertrophy of the cricopharyngeus and a tiny Z enker's diverticulum which is able to empty on its own after a couple dry swallows. Otherwise, hypoph aryngeal anatomy is preserved. The thoracic portion has a normal course and caliber. Mild to moderate tertiary peristaltic contracti ons are demonstrated. The mucosa is normal and no persistent filling defect is encountered. There is a small hiatal hernia and mild gastroesophageal reflux is elicited during the course of the exam. IMPRESSION: 1. Moderate hypertrophy of the cricopharyngeus may be contributing to the patient's symptoms. There i s also a tiny Zenker's diverticulum noted. 2. Mild to moderate, age-related esophageal dysmotility. 3. Small hiatal hernia and mild gastroesophageal reflux.
--- NOTE | 2021-03-16 17:57 | P.HPIM ---
History of Present Illness H&P Date: 03/16/21 Chief Complaint: Drooping from mouth This is a pleasant 80-year-old patient, presented to ER. Patient is by herself. At her baseline uses a walker. She gets Meals on Wheels. She admitted some hard chocolate when she tried to drink it noticed that it was drooping from the right side of the mouth. No change in vision. Patient has a slight headache in the back part of the head. No weakness in the arms and legs. While he decided to come in. Patient's had chronic intermittent trouble sometimes swallowing. Sometimes it goes the wrong way into her lungs. This is not new and is intermittent. Not specific to liquids or solids. She was seen in the ER. Given that was felt to be Reid's palsy to make sure is not a central cause he was admitted for neurological evaluation. 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 Some left arm and left leg weakness. Possible lupus. Skin cancer removed from the right side of the face. Gallstones. Chronic low back pain. Social history: Lives alone. Does use a walker. Meals on Wheels. No smoking or alcohol. Family history: DVT. Father committed suicide Physical examination: VITAL SIGNS: 98.1, 86, 20, 139/67, 95% room air GENERAL: BMI 40.8, declining bed, awake, comfortable. EYES: Pupils equal. Conjunctiva normal. HEENT: Nonhealing area outside the right thigh with skin cancers removed, external appearance of ear and nose normal. NECK: JVD not raised; masses not palpable. HEART: First and second heart sounds are normal; no edema. LUNGS: Respiratory rate normal; clear to auscultation. ABDOMEN: Soft, nontender, liver spleen not palpable, no masses palpable. PSYCH: Alert and oriented x3; mood and affect normal. NEUROLOGICAL: Mouth pulled to the left. creases in the left forehead present.. MUSCULAR skeletal: Evidence of OA LYMPHATICS: No lymph nodes palpable in the axilla and neck INVESTIGATIONS, reviewed in the clinical context: White count 6.3 hemoglobin 15.1 platelets 133 INR 3.6 potassium 4.2 creatinine 0.86 Troponin I 0.065, 0.114 LDL 90.8 Coronavirus [BCR: Not detected EKG tracing personally reviewed by me-right bundle branch block, sinus rhythm Chest x-ray film personally reviewed by me-borderline cardiomegaly. CT brain: Cerebral atrophy. Old right frontal lobe infarct. CT angiogram head and neck: Moderate diffuse stenosis of the entire right internal carotid artery with gentle flow seen in the intracranial right internal carotid artery decrease as a natural flow seen in the right middle cerebral artery. Hemodynamic stenosis. Carotid Doppler: Technical difficulty. No obvious stenosis reported. Barium swallow: Moderate hypertrophy of the cricopharyngeus may be contribution to the patient's symptoms. [id number] age-related esophageal dysmotility. Assessment and plan: -Patient presents with a new onset of right-sided facial weakness. 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 Patient does not have any associated Central symptoms. Neurology was consulted. Neuro checks. Started on acyclovir and prednisone. -Chronic intermittent dysphagia nonspecific to solids and liquids. Barium swallow was done. Shows evidence of esophageal dysmotility. -Moderate hypertropia of the cricopharyngeus. We'll have the patient follow up with ENT outpatient -Chronic gait dysfunction uses a walker at baseline -History of multiple CVAs in the past treated for which patient is on Coumadin. 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 Along with decreased size in a arterial flow in the right middle cerebral artery. Consult vascular surgery -Troponin leak. Likely from a central cause. Patient has no cardiac symptoms. No clinical evidence of acute coronary syndrome -Right bundle branch block -Morbid obesity BMI 40.8 Weight loss measures and follow-up with dietitian 2-D echo. MRI of the brain. Hold Coumadin. Consult vascular. Baby aspirin. Lipitor. Spoke to the patient. Barium swallow was done. Results of which are above. Note the patient follow up with ENT outpatient. Past Medical History Past Medical History: Cancer, CVA/TIA, Deep Vein Thrombosis (DVT), GERD/Reflux Additional Past Medical History / Comment(s): 3 past CVAs/some memory issues/L hand arm and L leg weakness, Lupus/bilateral leg DVTs, skin cancer removed from face/R side of face is having difficulty healing, gallstones, occasional low back pain, sinus problems, past r wrist dog bite with surgery/blood poisoning and has bone chips/pain elbow to fingers. History of Any Multi-Drug Resistant Organisms: None Reported Past Surgical History: Tonsillectomy Additional Past Surgical History / Comment(s): L leg thrombectomy done at [facility] in [place], R wrist injury with I&D, skin cancer removals from face Past Anesthesia/Blood Transfusion Reactions: No Reported Reaction, Motion Sickness Past Psychological History: No Psychological Hx Reported Smoking Status: Never smoker Past Alcohol Use History: None Reported Past Drug Use History: None Reported - Past Family History Father History Unknown: Yes Additional Family Medical History / Comment(s): father committed suicide. Mother Family Medical History: Deep Vein Thrombosis (DVT) Medications and Allergies Home Medications Medication Instructions Recorded Confirmed Type SILVER sulfADIAZINE Cream 1 applic TOPICAL DAILY PRN 03/15/21 03/15/21 History [Silvadene 1% Cream] Warfarin [Coumadin] 2 mg PO SUTUTHSA@1800 03/15/21 03/15/21 History Warfarin [Coumadin] 3 mg PO MOWEFR@1800 03/15/21 03/15/21 History Cetirizine HCl [Zyrtec] 10 mg PO DAILY 03/16/21 03/16/21 History Allergies Allergy/AdvReac Type Severity Reaction Status Date / Time No Known Allergies Allergy Verified 03/15/21 17:56 Physical Exam Vitals: Vital Signs Temp Pulse Pulse Resp BP BP Pulse Ox 03/16/21 07:43 98.2 F 98 16 130/72 95 03/16/21 03:40 89 16 136/71 96 03/15/21 22:00 96 16 169/89 97 03/15/21 18:45 98.8 F 102 H 18 152/84 96 03/15/21 17:45 98.8 F 98 18 152/82 96 03/15/21 17:30 98.8 F 101 H 18 154/76 96 03/15/21 17:15 98.8 F 103 H 18 101/75 96 03/15/21 17:00 98.7 F 101 H 18 149/77 96 03/15/21 16:50 98.7 F 101 H 18 164/73 96 03/15/21 16:45 98.8 F 98 18 151/70 97 Intake and Output 03/15/21 03/16/21 03/16/21 22:59 06:59 14:59 Other: Weight 97.976 kg 97.976 kg Results CBC & Chem 7: 03/16/21 09:01 03/16/21 09:01 Labs: Abnormal Lab Results - Last 24 Hours (Table) 03/15/21 03/15/21 03/15/21 Range/Units 17:48 17:48 17:48 Plt Count 116 L (150-450) k/uL Lymphocytes # (1.0-4.8) k/uL PT 44.4 H (9.0-12.0) sec INR 4.6 H (<1.2) APTT 45.4 H (22.0-30.0) sec Chloride (98-107) mmol/L Glucose 103 H (74-99) mg/dL Total Bilirubin 1.4 H (0.2-1.3) mg/dL Troponin I (0.000-0.034) ng/mL 03/15/21 03/15/21 03/16/21 Range/Units 17:48 20:47 09:01 Plt Count (150-450) k/uL Lymphocytes # (1.0-4.8) k/uL PT 34.8 H (9.0-12.0) sec INR 3.6 H (<1.2) APTT (22.0-30.0) sec Chloride (98-107) mmol/L Glucose (74-99) mg/dL Total Bilirubin (0.2-1.3) mg/dL Troponin I 0.065 H* 0.114 H* (0.000-0.034) ng/mL 03/16/21 03/16/21 Range/Units 09:01 09:01 Plt Count 133 L (150-450) k/uL Lymphocytes # 0.7 L (1.0-4.8) k/uL PT (9.0-12.0) sec INR (<1.2) APTT (22.0-30.0) sec Chloride 109 H (98-107) mmol/L Glucose 132 H (74-99) mg/dL Total Bilirubin (0.2-1.3) mg/dL Troponin I (0.000-0.034) ng/mL Thrombosis Risk Factor Assmnt - Choose All That Apply Any of the Below Risk Factors Present?: Yes Each Factor Represents 1 point: Obesity (BMI >25) Other Risk Factors: Yes Each Risk Factor Represents 2 Points: Malignancy Each Risk Factor Represents 3 Points: Age 75 years or older, Family history of DVT/PE, History of DVT/PE Each Risk Factor Represents 5 Points: Stroke (< 1 month) Thrombosis Risk Factor Assessment Total Risk Factor Score: 17 Thrombosis Risk Factor Assessment Level: High Risk
[2021-03-16] MEDS ORDERED: WARFARIN 0.5 MG TAB PO ONE (18:00)
[2021-03-16] MEDS: ARTIFICIAL TEARS-HYPROMELLOSE DROPS 15 ML BTL RIGHT EYE SCH (18:58)
[2021-03-16] MEDS: ACETAMINOPHEN TAB 500 MG TAB PO PRN (19:45)
[2021-03-17] MEDS: ARTIFICIAL TEARS-HYPROMELLOSE DROPS 15 ML BTL RIGHT EYE SCH ×5 (00:58→23:03)
[2021-03-17 07:39] LABS: INR 3.3 (<1.2)
[2021-03-17] MEDS: predniSONE 20 MG TAB PO SCH (08:27)
[2021-03-17] MEDS: valACYclovir HCL 1,000 MG TABLET PO SCH ×2 (08:28→20:15)
[2021-03-17] MEDS: ASPIRIN 81 MG PO SCH (08:28)
[2021-03-17] MEDS: SODIUM CHLORIDE 5% OPHTH OINT 3.5 GM TUBE RIGHT EYE SCH ×2 (08:28→20:16)
[2021-03-17] MEDS: ATORVASTATIN 40 MG TAB PO SCH (08:28)
--- NOTE | 2021-03-17 08:51 | ECHOF ---
Referral Reason:stroke MEASUREMENTS -------- HEIGHT: 152.4 cm WEIGHT: 98.0 kg BP: RVIDd: 3.5 cm (< 3.3) IVSd: 1.4 cm (0.6 - 1.1) LVIDd: 4.4 cm (3.9 - 5.3) LVPWd: 1.3 cm (0.6 - 1.1) IVSs: 1.6 cm LVIDs: 3.2 cm LVPWs: 1.7 cm LA Diam: 3.3 cm (2.7 - 3.8) Ao Diam: 3.4 cm (2.0 - 3.7) AV Cusp: 2.0 cm (1.5 - 2.6) LA Diam: 3.5 cm (2.7 - 3.8) MV EXCURSION: 16.226 mm (> 18.000) MV EF SLOPE: 67 mm/s (70 - 150) EPSS: 0.5 cm MV E Quentin: 0.30 m/s MV DecT: 258 ms MV A Quentin: 0.91 m/s MV E/A Ratio: 0.32 RAP: 5.00 mmHg RVSP: 18.61 mmHg FINDINGS -------- Sinus rhythm. This was a technically adequate study. The left ventricular size is normal. There is mild concentric left ventricular hypertrophy. Overa ll left ventricular systolic function is normal with, an EF between 60 - 65 %. The right ventricle is normal in size. The left atrial size is normal. The right atrial size is normal. There is mild aortic valve sclerosis. There is no evidence of aortic regurgitation. Mild mitral regurgitation is present. Mild tricuspid regurgitation present. Right ventricular systolic pressure is normal at < 35 mmHg. There is no pulmonic regurgitation present. Echo free space represents a pericardial fat pad. CONCLUSIONS -------- 1. The left ventricular size is normal. 2. There is mild concentric left ventricular hypertrophy. 3. Overall left ventricular systolic function is normal with, an EF between 60 - 65 %. 4. The right ventricle is normal in size. 5. The left atrial size is normal. 6. The right atrial size is normal. 7. There is mild aortic valve sclerosis. 8. Mild mitral regurgitation is present. 9. Mild tricuspid regurgitation present. 10. Echo free space represents a pericardial fat pad. [employer]CRE[employer] MEASURER: Olive Garcia RDCS
[2021-03-17] MEDS: LORATADINE 10 MG TAB PO SCH ×2 (09:56→20:15)
--- NOTE | 2021-03-17 11:03 | P.PN ---
Subjective Progress Note Date: 03/17/21 Patient seen and examined lying in bed. No acute changes through the night. Patient states she's had some difficulty with swallowing since she's had the facial numbness and drooping. She had barium swallow yesterday that showed moderate hypertrophy of the cricopharyngeus may be contributing to patient's symptoms. Also tiny Zenker's diverticulum noted. Mild to moderate age-related esophageal dysmotility and a small hiatal hernia and mild gastroesophageal reflux. MRI has not been completed. Patient continues with no new focal deficits. Objective - Vital Signs Vital signs: Vital Signs Temp 97.7 F 03/17/21 08:00 Pulse 91 03/17/21 08:00 Resp 16 03/17/21 08:00 BP 135/77 03/17/21 08:00 Pulse Ox 95 03/17/21 08:00 Intake & Output 03/16/21 03/17/21 03/17/21 18:59 06:59 18:59 Intake Total 360 Balance 360 Weight 97.976 kg Intake: Oral 360 Other: # Voids 1 1 - Exam General appearance: The patient is alert, oriented, appears in no acute distress. HET: Head is normocephalic and atraumatic. Pupils are equal and reactive. Facial asymmetry, right facial droop, tongue protrudes midline. Patient unable to raise right eyebrow. Neck: Supkeeps going to ple without lymphadenopathy. Trachea midline. No audible carotid bruit bilateral Heart: S1 S2. Regular rate and rhythm. Lungs: Clear to auscultation. No crackles or wheezes are heard. Abdomen: Soft, nontender, nondistended with bowel sounds. No peritoneal signs. No palpable organomegaly or masses. Extremities: Normal skin color and turgor. No cyanosis, rash, ulceration, clubbing, or edema. Radial and pedal pulses are 2/4 bilaterally. Neurological: Facial asymmetry, right facial droop with upper and lower facial weakness. Patient is alert and oriented 3. Able to follow commands, speech is fluent. Strength and sensation are grossly intact. - Labs CBC & Chem 7: 03/16/21 09:01 03/16/21 09:01 Labs: Abnormal Lab Results - Last 24 Hours (Table) 03/17/21 Range/Units 06:35 PT 32.0 H (9.0-12.0) sec INR 3.3 H (<1.2) Assessment and Plan Assessment: 1. Acute right facial droop, rule out stroke versus Reid's palsy 2. No hemodynamically significant internal carotid stenosis per carotid duplex and direct visualization of CT angiogram 3. Supratherapeutic INR on coumadin, held 3. History of CVA with no residual focal deficits 4. History of lupus on Coumadin 5. History of bilateral DVTs Plan: 1. Continue symptomatic and supportive care 2. Continue further workup per neurology 3. Carotid duplex and CT angiogram of head and neck reviewed with no evidence of hemodynamically significant internal carotid artery stenosis 4. Continue statin 5. Defer anticoagulation to neurology and medicine team 6. PT OT on consult 7. No indication for any vascular surgical intervention at this time. Kaveh mmend outpatient surveillance. Thank you for this kind referral and the opportunity to participate in the care of your patient. The impression and plan of care has been dictated as directed. Dr. Moffett I performed a history and examination of this patient, discussed the same with the dictator. I agree with the dictator's note ,documented as a scribe. Any additional findings or plans will be noted.
--- NOTE | 2021-03-17 11:29 | P.PN ---
Subjective Progress Note Date: 03/17/21 The patient is seen at bedside and she feels about the same. She continues to have right sided weakness. She denies of any new neurological problems. The patient's nurse patient could not get MRI of the brain yet because she has an IVC filter and still trying to get information regarding IVC filter. Objective - Vital Signs Vital signs: Vital Signs Temp 97.7 F 03/17/21 08:00 Pulse 91 03/17/21 08:00 Resp 16 03/17/21 08:00 BP 135/77 03/17/21 08:00 Pulse Ox 95 03/17/21 08:00 Intake & Output 03/16/21 03/17/21 03/17/21 18:59 06:59 18:59 Intake Total 360 Balance 360 Weight 97.976 kg Intake: Oral 360 Other: # Voids 1 1 - Exam GENERAL: The patient is lying in bed and is not in acute distress. INTEGUMENTARY: Right V1 to lateral side of eye, right lateral frontal has old skin blakish discoloration that is raised (stated has old hx of skin cancer and was resected). NEUROLOGICAL: Higher mental function: The patient is awake, alert, oriented to self, place and time. Patient is following commands. No aphasia and no neglect. Cranial nerves: The pupils are round, equal and reactive to light. Visual silva are full to confrontation throughout. Extraocular movement is intact no nystagmus is noted. Facial sensation is decreased over right V2 to touch, otherwise normal. The facial strength is right upper and lower facial weakness. Hearing is mildly decreased bilaterally to hand rub. Tongue is midline and mo luis [id number] without any difficulty. No dysarthria is noted. Shoulder shrug is normal bilaterally. Motor: The strength is 5 over 5 throughout. Normal tone and bulk. Cerebellum: Normal finger to nose bilaterally. Sensation: Sensation is normal to touch throughout. Reflexes (right/left): 3+ over bilateral brachioradialis, 1+ ankles bilaterally, otherwise 2+ throughout. Plantars is upgoing over the left but mute over the right. WORK-UP: AST is 34 ALTs 15. Lipid panel is triglyceride is 60, cholesterol is 160, LDL is 90 and HDL is 57. Cueto virus PCR is not detected. PT is 44.4, INR is 4.6-->3.3 and PTT is 45.4. INR is supratherapeutic CT of the head is reported as cerebral atrophy at. Old right frontal lobe infarct. No acute intracranial abnormality. I personally reviewed the CT of the head and I agree the patient had right frontal encephalomalacia with the hydrocephalus over the right lateral ventricle mostly anterior. I do not appreciate any acute or subacute ischemic stroke or any intraparenchymal hemorrhage. CT angiography of the head and neck was reported as moderate diffuse stenosis of the entire right internal carotid artery and very little flow seen in the intracranial right internal carotid artery. There is decreased size and arterial flow in the right middle cerebral artery at. There is hemodynamic stenosis. It is anterior cerebral artery appears to fill fairly well to the anterior communicating artery from the left side. Carotid duplex was reported as technically difficult exam. By in direct Doppler criteria, no hemodynamically significant internal carotid artery stenosis is seen on either side. Elevated velocities in the right ECA may be artifactual due to vessel of [place]. Incidentally, we note a 3.3 cm nodule of the thyroid gland on the patient's recent CTA. Dedicated thyroid ultrasound to further evaluate. 2-D echo was reported as mild concentric left ventricular hypertrophy. Ejection fraction of 60-65%. Left atrial size is normal. - Labs CBC & Chem 7: 03/16/21 09:01 03/16/21 09:01 Labs: Abnormal Lab Results - Last 24 Hours (Table) 03/17/21 Range/Units 06:35 PT 32.0 H (9.0-12.0) sec INR 3.3 H (<1.2) Assessment and Plan Assessment: Acute right facial weakness (peripheral). Seems Reid's Balsy. Cannot rule out stroke. No IV tpa since outside window and in on anticoagulation Old right frontal encephalomalacia without residual deficits Moderate stenosis over the right internal carotid artery per CTA but normal on carotid duplex Stenosis over the right middle cerebral artery per CTA History of Lupus on coumadin and present with Supratherapeutic INR (4.6) History of DVT s/p IV filter History of skin cancer History of falls Plan: * MRI of the brain with and without is pending (need more information regarding IVC filter). In mean time will get repeat CT head to see if any changes seen on repeat and not initial CT. * Vascular surgery team is on board and per team symptomatic management. * Continue aspirin 325mg daily (new during this hospital visit). Coumadin is held for now and will wait for result of MRI Brain. I will see if the patient truly has lupus (consulted Hematology team) for anticoagulation use to be continued. I feel that the Coumadin can be switched to Eliquis since the there is no need to monitor labs with Eliquis. But we'll get more details regarding the patient's falls and if she has significant falls there is a higher risk of the bleed from falls. * Currently the patient is on Lipitor 40 mg daily for secondary stroke prophylaxis * On prednisone 60 mg daily and valacyclovir thousand milligram 1 tablet tid for concern of reid's palsy. * Continue neuro checks * On cardiac monitoring. So far no A-fib or flutter. * PT, OT and SALES EFFECTIVENESS MANAGER are consulted * Consulted Heme/Oncology team for lupus and hx of skin cancer * Continue use of eye patch for her right eye and eye lubricants to avoid corneal ulcer. * We'll defer the rest of the medical management to the primary team. * For DVT prophylaxis started on subq heparin 5000U everyt 12 hours. The plan is discussed with the patient's nurse. UPDATE: Repeat CT head: No change in the remote right frontal lobe infarct. No new abnormality seen. No acute bleed or mass effect. I spoke with The primary team, and he stated that Hematology team recommend to continue with Coumadin since the DOAC in patient with history of lupus is limited and unknown efficacy. If coumadin is started recommend stopping ASA from neurological perspective. Regarding Reid's Palsy: Recommend for patient to be on Prednisone 60mg daily for total 5 days then taper every day 10mg (total for both 10 days) then stop. Continue Valacylovir for total 7 days then stop. Upon discharge, patient needs to follow-up with a neurologist as outpatient within 1-2 weeks. Recommend also following up with Heme/Onc. There is no further neurological work-up. Kuldip Lainez M.D. Neuro-Hospitalist Time with Patient: Less than 30
[2021-03-17] MEDS: ACETAMINOPHEN TAB 500 MG TAB PO PRN (12:11)
--- NOTE | 2021-03-17 13:05 | CT ---
EXAMINATION TYPE: CT brain wo con DATE OF EXAM: 03/17/2021 COMPARISON: 03/15/2021 HISTORY: Right sided facial numbness. CT DLP: 1141.4 mGycm Automated exposure control for dose reduction was used. FINDINGS: There has been no interval change. There is a remote of the right frontal lobe infarct with decreased density in the right frontal white matter and ex vacuo dilatation of the right lateral ventricle. There is no acute bleed or mass effect. There is moderate generalized atrophy. There is no shift of midline structures. The posterior fossa, including the brainstem, fourth ventricle and cerebellar pontine angles are pretty sly normal. The intraorbital contents appear normal and symmetric. Visualized paranasal sinuses and mastoid air c ells are well aerated. The calvarium is intact IMPRESSION: NO CHANGE IN THE REMOTE RIGHT FRONTAL LOBE INFARCT. NO NEW ABNORMALITY SEEN. NO ACUTE BLEED OR MASS E FFECT.
--- NOTE | 2021-03-17 14:31 | P.CONS ---
<Kellee Diallo - Last Filed: 03/17/21 20:57> History of Present Illness - Reason for Consult Consult date: 03/17/21 AC therapy choice Requesting physician: Kuldip Lianez - History of Present Illness Mrs. Vieyra is a patient who apparently has history of hypercoagulable state and thrombolic events secondary to history of Lupus. Neurology is following regarding neurological changes and asked us to evaluate for the possibility of using DOAC versus her current warfarin regimen. She is a poor historian and does not know if she has a history of Lupus or if she tested positive for lupus anticoagulant. Review of Systems All systems: negative Constitutional: Reports as per HPI Past Medical History Past Medical History: Cancer, CVA/TIA, Deep Vein Thrombosis (DVT), GERD/Reflux Additional Past Medical History / Comment(s): 3 past CVAs/some memory issues/L hand arm and L leg weakness, Lupus/bilateral leg DVTs, skin cancer removed from face/R side of face is having difficulty healing, gallstones, occasional low ba ck pain, sinus problems, past r wrist dog bite with surgery/blood poisoning and has bone chips/pain elbow to fingers. History of Any Multi-Drug Resistant Organisms: None Reported Past Surgical History: Tonsillectomy Additional Past Surgical History / Comment(s): L leg thrombectomy done at [facility] in [place], R wrist injury with I&D, skin cancer removals from face Past Anesthesia/Blood Transfusion Reactions: No Reported Reaction, Motion Sickness Past Psychological History: No Psychological Hx Reported Smoking Status: Never smoker Past Alcohol Use History: None Reported Past Drug Use History: None Reported - Past Family History Father History Unknown: Yes Additional Family Medical History / Comment(s): father committed suicide. Mother Family Medical History: Deep Vein Thrombosis (DVT) Medications and Allergies Home Medications Medication Instructions Recorded Confirmed Type SILVER sulfADIAZINE Cream 1 applic TOPICAL DAILY PRN 03/15/21 03/15/21 History [Silvadene 1% Cream] Warfarin [Coumadin] 2 mg PO SUTUTHSA@1800 03/15/21 03/15/21 History Warfarin [Coumadin] 3 mg PO MOWEFR@1800 03/15/21 03/15/21 History Cetirizine HCl [Zyrtec] 10 mg PO DAILY 03/16/21 03/16/21 History Artificial Tears-Hypromellose 1 drops RIGHT EYE QID ml 03/18/21 Rx [Artificial Tear Drops] Lisinopril-Hctz 20-12.5 mg 1 tab PO HS #30 tab 03/18/21 Rx [Zestoretic 20-12.5] predniSONE [Deltasone] 40 mg PO DAILY #10 tab 03/18/21 Rx valACYclovir HCL [Valtrex] 1,000 mg PO BID #14 tablet 03/18/21 Rx Allergies Allergy/AdvReac Type Severity Reaction Status Date / Time No Known Allergies Allergy Verified 03/15/21 17:56 Physical Exam Vitals: Vital Signs Temp Pulse Resp BP Pulse Ox 03/17/21 11:22 102 H 16 168/88 97 03/17/21 08:00 97.7 F 91 16 135/77 95 03/17/21 04:00 70 18 132/74 98 03/17/21 01:03 75 18 03/17/21 00:00 98.2 F 75 18 148/80 94 L 03/16/21 20:00 98.8 F 70 18 154/75 93 L 03/16/21 16:25 98.2 F 94 20 136/70 96 Intake and Output 03/16/21 03/17/21 03/17/21 22:59 06:59 14:59 Intake Total 180 Balance 180 Intake: Oral 180 Other: # Voids 1 1 - Constitutional General appearance: cooperative, no acute distress - EENT Patch right eye ENT: hard of hearing - Neck Neck: normal ROM - Respiratory Respiratory: bilateral: CTA - Cardiovascular Rhythm: regularly irregular - Integumentary Integumentary: pale - Musculoskeletal Musculoskeletal: right sided weakness - Psychiatric poor historian Psychiatric: A&O x's 3 Results CBC & Chem 7: 03/16/21 09:01 03/16/21 09:01 Labs: Abnormal Lab Results - Last 24 Hours (Table) 03/17/21 Range/Units 06:35 PT 32.0 H (9.0-12.0) sec INR 3.3 H (<1.2) Assessment and Plan (1) History of lupus Status: Acute Code(s): ZAD6184 - SNOMED Code(s): 789180699895726 (2) Reid palsy Status: Acute Code(s): G51.0 - REID'S PALSY SNOMED Code(s): 371984057 (3) Facial droop Status: Acute Code(s): R29.810 - FACIAL WEAKNESS SNOMED Code(s): 03420153 (4) History of CVA (cerebrovascular accident) Status: Acute Code(s): Z86.73 - PRSNL HX OF TIA (TIA), AND CEREB INFRC W/O RESID DEFICITS SNOMED Code(s): 842592601 Plan: Lupus work-up pending, await these results and continue on warfarin at this time as data for DOAC in patients with history of Lupus is limited and unknown efficacy. Discussed case with primary team. Continue warfarin Physician Attest: i have completed the full history and physical and agree with above dictation, dictated as a scribe. <Gerardo Gutierrez - Last Filed: 03/19/21 19:03> Results CBC & Chem 7: 03/16/21 09:01 03/16/21 09:01 Assessment and Plan Plan: As above. Per pt's history, there does NOT appear to be any h/o "lupus". It appears she was told she was Lupus anticoagulant positive. - The accuracy of the diagnosis based on history is not verifiable, as results are not available, and the pt does not recall if the test was done when she was on AC, which can cause false positives - APL panel repeated - If only LAC is positive, it will be non specific, as the pt is on AC - If pt is actually APL positive, the choice of anticoagulation will be warfarin ( or LMWH/Arixtra), as current data indicates that DOACs are NOT noninferior to warafarin for APL related thromboses. ALso the pt has never failed warfarin
--- NOTE | 2021-03-17 15:43 | P.PN ---
Progress Note - Text Progress Note Date: 03/17/21 Chief Complaint: Drooping from mouth This is a pleasant 80-year-old patient, presented to ER. Patient is by herself. At her baseline uses a walker. She gets Meals on Wheels. She admitted some hard chocolate when she tried to drink it noticed that it was drooping from the right side of the mouth. No change in vision. Patient has a slight headache in the back part of the head. No weakness in the arms and legs. While he decided to come in. Patient's had chronic intermittent trouble sometimes swallowing. Sometimes it goes the wrong way into her lungs. This is not new and is intermittent. Not specific to liquids or solids. She was seen in the ER. Given that was felt to be Reid's palsy to make sure is not a central cause he was admitted for neurological evaluation. March 17: Patient states she is at least had 3 episodes of DVT and to 3 episodes of TIA/stroke. That's why she is on Coumadin. No neuro findings. Tolerating a diet. Right eye cover. No change in facial asymmetry. Barium swallow did confirm abnormal esophageal contractions. [Patient cannot have an MRI because of type of IVC filter unknown] Review of systems: Was done for constitutional, cardiovascular, GI, pulmonary. relevant finding as above Active Medications Acetaminophen (Acetaminophen Tab 500 Mg Tab) 500 mg PO Q6HR PRN PRN Reason: Fever and/ or Mild Pain Last Admin: 03/17/21 12:11 Dose: 500 mg Documented by: Artificial Tears (Artificial Tears-Hypromellose Drops 15 Ml Btl) 1 drops RIGHT EYE QID [facility] Last Admin: 03/17/21 12:12 Dose: 1 drops Documented by: Aspirin (Aspirin 81 Mg) 81 mg PO DAILY [facility] Last Admin: 03/17/21 08:28 Dose: 81 mg Documented by: Atorvastatin Calcium (Atorvastatin 40 Mg Tab) 40 mg PO DAILY [facility] Last Admin: 03/17/21 08:28 Dose: 40 mg Documented by: Heparin Sodium (Porcine) (Heparin Sodium,Porcine/Pf 5,000 Unit/0.5 Ml Syringe) 5,000 unit SQ Q12HR [facility] Loratadine (Loratadine 10 Mg Tab) 5 mg PO Q12HR [facility] Last Admin: 03/17/21 09:56 Dose: 5 mg Documented by: Naloxone HCl (Naloxone 0.4 Mg/Ml 1 Ml Vial) 0.2 mg IV Q2M PRN PRN Reason: Opioid Reversal Prednisone (Prednisone 20 Mg Tab) 60 mg PO DAILY [facility] Last Admin: 03/17/21 08:27 Dose: 60 mg Documented by: Sodium Chloride (Sodium Chloride 5% Ophth Oint 3.5 Gm Tube) 1 applic RIGHT EYE BID [facility] Last Admin: 03/17/21 08:28 Dose: 1 applic Documented by: Valacyclovir HCl (Valacyclovir Hcl 1,000 Mg Tablet) 1,000 mg PO BID [facility] Last Admin: 03/17/21 08:28 Dose: 1,000 mg Documented by: Past medical history to include: 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 3 past CVA with memory issues. Some left arm and left leg weakness. Possible lupus. Skin cancer removed from the right side of the face. Gallstones. Chronic low back pain. Social history: Lives alone. Does use a walker. Meals on Wheels. No smoking or alcohol. Family history: DVT. Father committed suicide Physical examination: VITAL SIGNS: 97.7, 91, 16, 135-77, 85% room air GENERAL:reclining bed, awake, comfortable. EYES: Pupils equal. Conjunctiva normal. HEENT: Nonhealing area outside the right eye with skin cancers removed, external appearance of ear and nose normal. NECK: JVD not raised; masses not palpable. HEART: First and second heart sounds are normal; no edema. LUNGS: Respiratory rate normal; clear to auscultation. ABDOMEN: Soft, nontender, liver spleen not palpable, no masses palpable. PSYCH: Alert and oriented x3; mood and affect normal. NEUROLOGICAL: Mouth pulled to the left. creases in the left forehead present.. MUSCULAR skeletal: Evidence of OA INVESTIGATIONS, reviewed in the clinical context: March 17: INR 3.3. Repeat CT brain: Unchanged 2-D echocardiogram: EF 60-65% White count 6.3 hemoglobin 15.1 platelets 133 INR 3.6 potassium 4.2 creatinine 0.86 Troponin I 0.065, 0.114 LDL 90.8 Coronavirus [BCR: Not detected EKG tracing personally reviewed by me-right bundle branch block, sinus rhythm Chest x-ray film personally reviewed by me-borderline cardiomegaly. CT brain: Cerebral atrophy. Old right frontal lobe infarct. CT angiogram head and neck: Moderate diffuse stenosis of the entire right internal carotid artery with gentle flow seen in the intracranial right internal carotid artery decrease as a natural flow seen in the right middle cerebral artery. Hemodynamic stenosis. Carotid Doppler: Technical difficulty. No obvious stenosis reported. Barium swallow: Moderate hypertrophy of the cricopharyngeus may be contribution to the patient's symptoms. [id number] age-related esophageal dysmotility. Assessment and plan: -Acute right-sided seventh nerve Reid's palsy. Lower motor neuron type. Patient does not have any associated Central symptoms. acyclovir and prednisone. Follow with neurology -Chronic intermittent dysphagia nonspecific to solids and liquids. Barium swall ow - evidence of esophageal dysmotility. -Moderate hypertropia of the cricopharyngeus. patient follow up with ENT outpatient -Chronic gait dysfunction uses a walker at baseline -History of multiple CVAs in the past possibly from lupus treated for which patient is on Coumadin. -Coumadin monitoring -Right and left cataract did artery moderate diffuse stenosis with little from the intracranial right internal carotid artery. Along with decreased size in a arterial flow in the right middle cerebral artery. Seen by vascular surgery Dr. Moffett. Obtained a current intervention. -Troponin leak. Likely from a central cause. Patient has no cardiac symptoms. No clinical evidence of acute coronary syndrome -Right bundle branch block -Morbid obesity BMI 40.8 Weight loss measures and follow-up with dietitian Patient cannot have an MRI of the brain as type of IVC filter unknown. Discussed with Dr. Lainez from pulmonary. Role of NOAC uncared with lupus. In this event patient does not present with stroke it is a lower motor Dr. chronic Reid's palsy unrelated to the same. We'll discuss with hematology.
[2021-03-17] MEDS ORDERED: WARFARIN 3 MG TAB PO SCH (18:00)
[2021-03-17 21:47] LABS: Cardiolipin IgA Antibody 18.8 U/mL
[2021-03-17 21:55] LABS: Cardiolipin Ab IgG Interp Positive (NEGATIVE); Cardiolipin Ab IgM Interp NEGATIVE (NEGATIVE); Cardiolipin IgM Antibody 2.3 U/mL
[2021-03-18 07:53] VITALS: RESP 20
[2021-03-18] MEDS: valACYclovir HCL 1,000 MG TABLET PO SCH (08:42)
[2021-03-18] MEDS: predniSONE 20 MG TAB PO SCH (08:42)
[2021-03-18] MEDS: SODIUM CHLORIDE 5% OPHTH OINT 3.5 GM TUBE RIGHT EYE SCH (08:42)
[2021-03-18] MEDS: ASPIRIN 81 MG PO SCH (08:42)
[2021-03-18] MEDS: LORATADINE 10 MG TAB PO SCH (08:42)
[2021-03-18] MEDS: ATORVASTATIN 40 MG TAB PO SCH (08:42)
[2021-03-18] MEDS: ARTIFICIAL TEARS-HYPROMELLOSE DROPS 15 ML BTL RIGHT EYE SCH ×2 (08:43→12:30)
[2021-03-18] MEDS ORDERED: HEPARIN SODIUM,PORCINE/PF 5,000 UNIT/0.5 ML SYRINGE SQ SCH (09:00)
[2021-03-18 09:38] LABS: Prothrombin Time 19.9 sec (9.0-12.0)
--- NOTE | 2021-03-18 10:23 | P.PN ---
Subjective Progress Note Date: 03/18/21 The patient is seen at bedside and she feels about the same compared to yesterday. She states she had her neighbor get into her house and was able to get the card for her IVC filter. Per the nurse she is going for MRI today. I spoke with technical solution architect and they stated she is scheduled for 11:30isham today. Objective - Vital Signs Vital signs: Vital Signs Temp 97.8 F 03/18/21 07:52 Pulse 89 03/18/21 07:52 Resp 20 03/18/21 07:52 BP 161/75 03/18/21 07:52 Pulse Ox 93 L 03/18/21 07:52 Intake & Output 03/17/21 03/18/21 03/18/21 18:59 06:59 18:59 Other: # Voids 1 1 1 - Exam GENERAL: The patient is lying in bed and is not in acute distress. INTEGUMENTARY: Right V1 to lateral side of eye, right lateral frontal has old skin blakish discoloration that is raised (stated has old hx of skin cancer and was resected). NEUROLOGICAL: Higher mental function: The patient is awake, alert, oriented to self, place and time. Patient is following commands. No aphasia and no neglect. Cranial nerves: The pupils are round, equal and reactive to light. Visual islva are full to confrontation throughout. Extraocular movement is intact no nystagmus is noted. Facial sensation is decreased over right V2 to touch, otherwise normal. The facial strength is right upper and lower facial weakness. Hearing is mildly decreased bilaterally to hand rub. Tongue is midline and moved [id number] without any difficulty. Subtle dysarthria is noted. Shoulder shrug is normal bilaterally. Motor: The strength is 5 over 5 throughout. Normal tone and bulk. Cerebellum: Normal finger to nose bilaterally. Sensation: Sensation is normal to touch throughout. Reflexes (right/left): 3+ over bilateral brachioradialis, 1+ ankles bilaterally, otherwise 2+ throughout. Plantars is upgoing over the left but mute over the right. WORK-UP: AST is 34 ALTs 15. Lipid panel is triglyceride is 60, cholesterol is 160, LDL is 90 and HDL is 57. Cueto virus PCR is not detected. PT is 44.4, INR is 4.6-->3.3 and PTT is 45.4. INR is supratherapeutic Anti-cardiolipin IgG antibody is 77.9 (>20 is considered positive). Cardiolipin IgG interpretation is positive Anti-cardiolipin IgA antibiotic is negative Anticardiolipin IgM antibody is negative. CT of the head is reported as cerebral atrophy at. Old right frontal lobe infarct. No acute intracranial abnormality. I personally reviewed the CT of the head and I agree the patient had right frontal encephalomalacia with the hydrocephalus over the right lateral ventricle mostly anterior. I do not appreciate any acute or subacute ischemic stroke or any intraparenchymal hemorrhage. CT angiography of the head and neck was reported as moderate diffuse stenosis of the entire right internal carotid artery and very little flow seen in the intracranial right internal carotid artery. There is decreased size and a rterial flow in the right middle cerebral artery at. There is hemodynamic stenosis. It is anterior cerebral artery appears to fill fairly well to the anterior communicating artery from the left side. Carotid duplex was reported as technically difficult exam. By in direct Doppler criteria, no hemodynamically significant internal carotid artery stenosis is seen on either side. Elevated velocities in the right ECA may be artifactual due to vessel of [place]. Incidentally, we note a 3.3 cm nodule of the thyroid gland on the patient's recent CTA. Dedicated thyroid ultrasound to further evaluate. 2-D echo was reported as mild concentric left ventricular hypertrophy. Ejection fraction of 60-65%. Left atrial size is normal. - Labs CBC & Chem 7: 03/16/21 09:01 03/16/21 09:01 Labs: Abnormal Lab Results - Last 24 Hours (Table) 03/17/21 Range/Units 06:35 Cardiolipin IgG Interp Positive A (NEGATIVE) Assessment and Plan Assessment: Acute right facial weakness (peripheral). Seems Reid's Balsy. Cannot rule out stroke. 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 No new abnormality seen. No acute bleed or mass effect. Pending MRI Brain (scheduled today). * Vascular surgery team is on board and per team symptomatic management. * On aspirin 81mg daily (new during this hospital visit). Coumadin is held for now and will wait for result of MRI Brain. I will see if the patient truly has lupus (consulted Hematology team) for anticoagulation use to be continued. I feel that the Coumadin can be switched to Eliquis since the there is no need to monitor labs with Eliquis. I believe Eliquis will be safer compared to Coumadin especially with lower risk of severe bleed especially with falls. * I spoke with The primary team, and he stated that Hematology team recommend to continue with Coumadin since the DOAC in patient with history of lupus is limited and unknown efficacy. If coumadin is started recommend stopping ASA from neurological perspective. * Regarding Reid's Palsy: Recommend for patient to be on Prednisone 60mg daily for total 5 days then taper every day 10mg (total for both 10 days) then stop. Continue Valacylovir for total 7 days then stop. * Currently the patient is on Lipitor 40 mg daily for secondary stroke prophylaxis * Continue neuro checks * On cardiac monitoring. So far no A-fib or flutter. * PT, OT and MANAGER BUSINESS PLANNING are consulted * Consulted Heme/Oncology team for lupus and hx of skin cancer * Continue use of eye patch for her right eye and eye lubricants to avoid corneal ulcer. * We'll defer the rest of the medical management to the primary team. * For DVT prophylaxis started on subq heparin 5000U every 12 hours. * Upon discharge, recommend the patient to follow-up with a neurologist as outpatient within 1-2 weeks. The plan is discussed with the patient and her nurse. If MRI Brain is negative for acute or subacute stroke no further neurological wo rk-up. Kuldip Lainez M.D. Neuro-Hospitalist Time with Patient: Less than 30
[2021-03-18] MEDS ORDERED: LISINOPRIL-HCTZ 20-12.5 MG 1 EACH TAB PO STA (11:08)
[2021-03-18 11:18] VITALS: BP 150/76; PULSE 87; TEMP 97.6
--- NOTE | 2021-03-18 11:58 | MR ---
EXAMINATION TYPE: MR brain wo/w con DATE OF EXAM: 03/18/2021 COMPARISON: CT brain from yesterday HISTORY: Right facial droop. Evaluate CVA vs Reid's Palsy. TECHNIQUE: Multiplanar, multisequence images of the brain and brainstem is performed without and with IV contras t, utilizing 8 mL intravenous Gadavist . FINDINGS: Diffusion weighted images demonstrate no evidence of a recent infarct or other diffusion ab normality. There is mild to moderate diffuse ventricular and sulcal prominence. There is persistent old infarct in the right frontal parietal region MCA distribution with ex vacuo dilatation of the rig ht lateral ventricle. Midline structures demonstrate normal morphology. The craniocervical junction appears within normal limits. Post contrast images demonstrate no abnormal enhancement. The dural venous sinuses appear pa tent. The visualized sinuses are clear and the globes are intact. Nasal septum is deviated to right o f midline. IMPRESSION: 1. No MRI evidence for a recent infarct. 2. Mild to moderate diffuse cerebral atrophy with old right-sided frontal parietal infarct redemonstr ated.
[2021-03-18] MEDS ORDERED: WARFARIN 1 MG TAB PO SCH (18:00)
--- NOTE | 2021-03-18 20:19 | P.DS ---
Providers Date of admission: 03/17/21 13:35 Expected date of discharge: 03/18/21 Attending physician: Everton Gavin Consults: 03/15/21 19:40 Consult Physician Urgent Consulting Provider: Kuldip Lainez Consult Reason/Comments: acute right sided facial droop, suspected bells, hx cva, suprath inr Do you want consulting provider notified?: Yes 03/16/21 08:35 Consult Physician Routine Consulting Provider: Wilbur Mckeon Consult Reason/Comments: Right ICA stenosis Do you want consulting provider notified?: Yes 03/16/21 10:02 Consult Physician Routine Consulting Provider: Gerardo Gutierrez Consult Reason/Comments: ?lupus with hx of skin cancer. Change to eliquis if truly lupus Do you want consulting provider notified?: Yes Primary care physician: [facility] Course: Chief Complaint: Drooping from mouth This is a pleasant 80-year-old patient, presented to ER. Patient is by herself. At her baseline uses a walker. She gets Meals on Wheels. She admitted some hard chocolate when she tried to drink it noticed that it was drooping from the right side of the mouth. No change in vision. Patient has a slight headache in the back part of the head. No weakness in the arms and legs. While he decided to come in. Patient's had chronic intermittent trouble sometimes swallowing. Sometimes it goes the wrong way into her lungs. This is not new and is intermittent. Not specific to liquids or solids. She was seen in the ER. Given that was felt to be Reid's palsy to make sure is not a central cause he was admitted for neurological evaluation. March 17: Patient states she is at least had 3 episodes of DVT and to 3 episodes of TIA/stroke. That's why she is on Coumadin. No neuro findings. Tolerating a diet. Right eye cover. No change in facial asymmetry. Barium swallow did confirm abnormal esophageal contractions. [Patient cannot have an MRI because of type of IVC filter unknown]. Discussed with oncology. Patient to continue on Coumadin. March 18: MRi done. No acute changes. Discussed with the patient. Patient's findings and follow-up with ENT discussed. Questions answered. Right eye patch. Discussion and discharge planning more than 35 minutes Consultation: Dr. 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 Some left arm and left leg weakness. Possible lupus. Skin cancer removed from the right side of the face. Gallstones. Chronic low back pain. Social history: Lives alone. Does use a walker. Meals on Wheels. No smoking or alcohol. Family history: DVT. Father committed suicide Physical examination: VITAL SIGNS: 97.6, 87, 20, 150/76, 96% room air GENERAL: Up in chair awake, comfortable. EYES: Pupils equal. Conjunctiva normal. HEENT: Nonhealing area outside the right eye with skin cancers removed, external appearance of ear and nose normal. NECK: JVD not raised; masses not palpable. HEART: First and second heart sounds are normal; no edema. LUNGS: Respiratory rate normal; clear to auscultation. ABDOMEN: Soft, nontender, liver spleen not palpable, no masses palpable. PSYCH: Alert and oriented x3; mood and affect normal. NEUROLOGICAL: Mouth pulled to the left. creases in the left forehead present.. Patch over her right eye MUSCULAR skeletal: Evidence of OA INVESTIGATIONS, reviewed in the clinical context: MRI: Chronic changes and evidence of old infarct in the frontal lobe March 17: INR 3.3. Repeat CT brain: Unchanged 2-D echocardiogram: EF 60-65% White count 6.3 hemoglobin 15.1 platelets 133 INR 3.6 potassium 4.2 creatinine 0.86 Troponin I 0.065, 0.114 LDL 90.8 Coronavirus [BCR: Not detected EKG tracing personally reviewed by me-right bundle branch block, sinus rhythm Chest x-ray film personally reviewed by me-borderline cardiomegaly. CT brain: Cerebral atrophy. Old right frontal lobe infarct. CT angiogram head and neck: Moderate diffuse stenosis of the entire right internal carotid artery with gentle flow seen in the intracranial right internal carotid artery decrease as a natural flow seen in the right middle cerebral artery. Hemodynamic stenosis. Carotid Doppler: Technical difficulty. No obvious stenosis reported. Barium swallow: Moderate hypertrophy of the cricopharyngeus may be contribution to the patient's symptoms. [id number] age-related esophageal dysmotility. Assessment and plan: -Acute right-sided seventh nerve Reid's palsy. Lower motor neuron type. Patient does not have any associated Central symptoms. acyclovir and prednisone. Follow with neurology -Chronic intermittent dysphagia nonspecific to solids and liquids. Barium swallow - evidence of esophageal dysmotility. -Moderate hypertropia of the cricopharyngeus. patient follow up with Dr. Llamas outpatient -Chronic gait dysfunction uses a walker at baseline -History of multiple CVAs in the past possibly from lupus treated for which patient is on Coumadin. -Coumadin monitoring -Right and left cataract did artery moderate diffuse stenosis with little from the intracranial right internal carotid artery. Along with decreased size in a arterial flow in the right middle cerebral artery. Seen by vascular surgery Dr. Moffett. No new intervention. -Troponin leak. Likely from a central cause. Patient has no cardiac symptoms. No clinical evidence of acute coronary syndrome -Right bundle branch block -Morbid obesity BMI 40.8 Weight loss measures and follow-up with dietitian Disposition: Home Plan - Discharge Summary Discharge Rx Participant: No New Discharge Prescriptions: New Lisinopril-Hctz 20-12.5 mg [Zestoretic 20-12.5] 1 tab PO HS #30 tab Artificial Tears-Hypromellose [Artificial Tear Drops] 1 drops RIGHT EYE QID ml predniSONE [Deltasone] 40 mg PO DAILY #10 tab valACYclovir HCL [Valtrex] 1,000 mg PO BID #14 tablet Continue Warfarin [Coumadin] 3 mg PO MOWEFR@1800 Cetirizine HCl [Zyrtec] 10 mg PO DAILY Warfarin [Coumadin] 2 mg PO SUTUTHSA@1800 SILVER sulfADIAZINE Cream [Silvadene 1% Cream] 1 applic TOPICAL DAILY PRN PRN Reason: FACE WOUND Discharge Medication List SILVER sulfADIAZINE Cream [Silvadene 1% Cream] 1 applic TOPICAL DAILY PRN 03/15/21 [History] Warfarin [Coumadin] 2 mg PO SUTUTHSA@1800 03/15/21 [History] Warfarin [Coumadin] 3 mg PO MOWEFR@1800 03/15/21 [History] Cetirizine HCl [Zyrtec] 10 mg PO DAILY 03/16/21 [History] Artificial Tears-Hypromellose [Artificial Tear Drops] 1 drops RIGHT EYE QID ml 03/18/21 [Rx] Lisinopril-Hctz 20-12.5 mg [Zestoretic 20-12.5] 1 tab PO HS #30 tab 03/18/21 [Rx] predniSONE [Deltasone] 40 mg PO DAILY #10 tab 03/18/21 [Rx] valACYclovir HCL [Valtrex] 1,000 mg PO BID #14 tablet 03/18/21 [Rx] Follow up Appointment(s)/Referral(s): Diego Aquino DO [Doctor of Osteopathic Medicine] - 1 Week (Prominent cricopharyngeus possible cause of dysphagia, please call office when open to schedule appointment) Juan Simon DO [Doctor of Osteopathic Medicine] - 2 Weeks (call office when open to make follow up appointment) Sathya Roa MD [Primary Care Provider] - 1-2 days (call office when open to make follow up appointment) Patient Instructions/Handouts: Reid Palsy (DC) Discharge Disposition: HOME SELF-CARE
[2021-03-20 13:16] LABS: APTT 78 Sec(s) (<43); APTT 1:1 Mix 77 Sec(s) (<43); DRVVT 1:1 Mix 80 Sec(s) (<44); DRVVT Confirmation Positive (Negative); Dilute Russell Viper Venom 87 Sec(s) (<44); Hexagonal Phase Neutralization Positive (Negative)
== END 2021-03-18 14:21 | disposition home or self-care (01) | DRG 74 ==
LOC: EC 16:26 → 3SCARD 19:39 → OBSVTOIN 03-17 13:35
PROVIDERS: ADMIT Hospitalist; ATTEND Hospitalist
DX: G51.0 Bell's palsy (principal); G91.9 Hydrocephalus, unspecified; D68.59 Other primary thrombophilia; Z68.41 Body mass index [BMI] 40.0-44.9, adult; G93.89 Other specified disorders of brain; I45.10 Unspecified right bundle-branch block; I65.21 Occlusion and stenosis of right carotid artery; K21.9 Gastro-esophageal reflux disease without esophagitis; K22.4 Dyskinesia of esophagus; K44.9 Diaphragmatic hernia without obstruction or gangrene; T45.515A Adverse effect of anticoagulants, initial encounter; E66.01 Morbid (severe) obesity due to excess calories; R26.9 Unspecified abnormalities of gait and mobility; M32.9 Systemic lupus erythematosus, unspecified; I69.311 Memory deficit following cerebral infarction; Z60.2 Problems related to living alone; R13.10 Dysphagia, unspecified; Z20.822 Contact with and (suspected) exposure to COVID-19; R77.8 Other specified abnormalities of plasma proteins; Z83.2 Family history of diseases of the blood and blood-forming organs and certain disorders involving the immune mechanism; Z81.8 Family history of other mental and behavioral disorders; Z79.01 Long term (current) use of anticoagulants; Z85.828 Personal history of other malignant neoplasm of skin; Z86.718 Personal history of other venous thrombosis and embolism; Z91.81 History of falling; Z95.828 Presence of other vascular implants and grafts; Z98.890 Other specified postprocedural states; Z79.899 Other long term (current) drug therapy
CPT/HCPCS: 36415; 70450; 70496; 70498; 70553; 71046; 74220; 80048; 80053; 80061; 84484; 85025; 85598; 85610; 85613; 85730; 85732; 86146; 86147; 87635; 93005; 93306; 93880

== ENCOUNTER 2024-05-06 12:20 | Emergency (ER) | payer MEDICARE ==
[2024-05-06 12:28] VITALS: TEMP 98.1
--- NOTE | 2024-05-06 12:43 | ED ---
General Adult HPI - General Chief complaint: Fall Stated complaint: fall-back pain Time Seen by Provider: 05/06/24 12:22 Source: patient, EMS Mode of arrival: EMS Limitations: physical limitation - History of Present Illness Initial comments: Dictation was produced using [employer] dictation software. please excuse any grammatical, word or spelling errors. Chief Complaint: 83-year-old female with weakness History of Present Illness: Patient is an 83-year-old female she lives at home by herself. States that she has been suffering frequent falls over the last couple weeks. States that she fell specifically on the 10th where she hit the back of her head. She did not seek any medical attention at that time. She fell again a few days ago and hurt her lower back. Denies any saddle anesthesia. Denies any loss of consciousness. This morning she woke up started to feel really weak prompting her to call EMS transport to the hospital. The ROS documented in this emergency department record has been reviewed and confirmed by me. Those systems with pertinent positive or negative responses have been documented in the HPI. All other systems are other negative and/or noncontributory. - Related Data Home Medications Medication Instructions Recorded Confirmed Warfarin [Coumadin] 2 mg PO SUTUTHSA@199903/15/21 05/06/24 Warfarin [Coumadin] 3 mg PO MOWEFR@199903/15/21 05/06/24 Cetirizine HCl [Zyrtec] 10 mg PO HS@199903/16/21 05/06/24 Acetaminophen Tab [Tylenol Tab] 500 mg PO Q6H PRN 05/06/24 05/06/24 Allergies Allergy/AdvReac Type Severity Reaction Status Date / Time No Known Allergies Allergy Verified 05/06/24 14:49 Review of Systems ROS Statement: Those systems with pertinent positive or pertinent negative responses have been documented in the HPI. ROS Other: All systems not noted in ROS Statement are negative. Past Medical History Past Medical History: Cancer, CVA/TIA, Deep Vein Thrombosis (DVT), GERD/Reflux Additional Past Medical History / Comment(s): 3 past CVAs/some memory issues/L hand arm and L leg weakness, Lupus/bilateral leg DVTs, skin cancer removed from face/R side of face is having difficulty healing, gallstones, occasional low back pain, sinus problems, past r wrist dog bite with surgery/blood poisoning and has bone chips/pain elbow to fingers. History of Any Multi-Drug Resistant Organisms: None Reported Past Surgical History: Tonsillectomy Additional Past Surgical History / Comment(s): L leg thrombectomy done at [facility] in [place], R wrist injury with I&D, skin cancer removals from face Past Anesthesia/Blood Transfusion Reactions: No Reported Reaction, Motion Sic kness Past Psychological History: No Psychological Hx Reported Smoking Status: Never smoker Past Alcohol Use History: None Reported Past Drug Use History: None Reported - Past Family History Father History Unknown: Yes Additional Family Medical History / Comment(s): father committed suicide. Mother Family Medical History: Deep Vein Thrombosis (DVT) General Exam - General Exam Comments Initial Comments: PHYSICAL EXAM: General Impression: Alert and oriented x3, not in acute distress HEENT: Normocephalic atraumatic, extra-ocular movements intact, pupils equal and reactive to light bilaterally, mucous membranes moist. Cardiovascular: Heart regular rate and rhythm Chest: Able to complete full sentences, no retractions, no tachypnea Abdomen: abdomen soft, non-tender, non-distended, no organomegaly Musculoskeletal: Pulses present and equal in all extremities, no peripheral edema Motor: no focal deficits noted Neurological: CN II-XII grossly intact, no focal motor or sensory deficits noted Skin: Chronic wound to the right cheek, rest of skin exam is intact with no visualized rashes Psych: Normal affect and mood Limitations: physical limitation Course Vital Signs 05/06/24 12:23 Temperature 98.1 F Pulse Rate 87 Respiratory 20 Rate Blood Pressure 166/81 O2 Sat by Pulse 99 Oximetry EKG Findings - EKG Comments: EKG Findings:: My EKG interpretation: Ventricular rate 97, sinus rhythm, right bundle branch block,. 165, QRS 127, QTc 423. No MA prolongation, no QTC prolongation, no ST or T-wave changes noted. Overall, this EKG is unremarkable Medical Decision Making - Medical Decision Making Macro was pt. sent in by a medical professional or institution (, PA, [employer], urgent care, hospital, or care home...) When possible be specific @ -No Did you speak to anyone other than the patient for history (EMS, parent, family, police, friend...)? What history was obtained from this source @ -No Did you review nursing and triage notes (agree or disagree)? Why? @ -I reviewed and agree with nursing and triage notes Were old charts reviewed (outside hosp., previous admission, EMS record, old EKG, old radiological studies, urgent care reports/EKG's, care home records)? Report findings @ -No old charts were reviewed Differential Diagnosis (chest pain, altered mental status, abdominal pain women, abdominal pain men, vaginal bleeding, musculoskeletal, weakness, fever, dyspnea, syncope, headache, dizziness, GI bleed, back pain, seizure, CVA, palpatations, mental health)? @ -Differential Weakness: Hypoglycemia, shock, sepsis, hyponatremia, anemia, infection, ND, ETOH, adverse medicine reaction, overdose, stroke, this is not meant to be an all-inclusive list. EKG interpreted by me (3pts min.). @ -See above X-rays interpreted by me (1pt min.). @ -None done CT interpreted by me (1pt min.). @ -CT scan of head C-spine abdomen pelvis shows no acute processes. U/S interpreted by me (1pt. min.). @ -None done What testing was considered but not performed or refused? (CT, X-rays, U/S, labs)? Why? @ -None What meds were considered but not given or refused? Why? @ -None Was smoking cessation discussed for >3mins.? @ -No Were there social determinants of health that impacted care today? How? (Homelessness, low income, unemployed, alcoholism, drug addiction, transportation, low edu. Level, literacy, decrease access to med. care, usp, rehab)? @ -No Was there de-escalation of care discussed even if they declined (Discuss DNR or withdrawal of care, Hospice)? DNR status @ -No What co-morbidities impacted this encounter? (DM, HTN, Smoking, COPD, CAD, Cancer, CVA, ARF, Chemo, Hep., AIDS, mental health diagnosis, sleep apnea, morbid obesity)? @ -Anticoagulation use Was patient admitted / discharged? Hospital course, mention meds given and route, prescriptions, significant lab abnormalities, going to OR and other pertinent info. @ -83-year-old female presents emergency department with weakness and multiple falls over the previous several days. She complains of back pain. Vital signs stable. Laboratory evaluation is unremarkable. Urinalysis negative. Imaging studies are negative including CT brain, C-spine abdomen pelvis. Patient has no high risk features for her back pain. Disposition options were discussed. Case management consult stated and after discussion with case management patient felt comfortable being discharged with home health care and physical therapy follow- up. Did you discuss the management of the patient with other professionals (professionals i.e. , PA, [employer], lab, RT, psych nurse, social services coordinator, wood getter, teacher, chief investment officer, case management assistant)? Give summary @ -as above Was critical care preformed (if so, how long)? @ -No Undiagnosed new problem with uncertain prognosis? @ -No Drug Therapy requiring intensive monitoring for toxicity (Heparin, Nitro, Insulin, Cardizem)? @ -No Were any procedures done? @ -No Diagnosis/symptom? Acute, or Chronic, or Acute on Chronic? Uncomplicated (without systemic symptoms) or Complicated (systemic symptoms)? @ -Generalized weakness, frequent falls, anticoagulation use Side effects of treatment? @ -No Exacerbation, Progression, or Severe Exacerbation? @ -No Poses a threat to life or bodily function? How? (Chest pain, USA, ND, pneumonia, PE, COPD, DKA, ARF, appy, cholecystitis, CVA, Diverticulitis, Homicidal, Suicidal, threat to staff... and all critical care pts) @ -yes - Lab Data Result diagrams: 05/06/24 13:49 05/06/24 13:49 Lab Results 05/06/24 05/06/24 05/06/24 Range/Units 13:06 13:49 13:49 WBC 7.0 (3.8-10.6) k/uL RBC 4.68 (3.80-5.40) m/uL Hgb 13.9 (11.4-16.0) gm/dL Hct 43.6 (34.0-46.0) % MCV 93.3 (80.0-100.0) fL MCH 29.8 (25.0-35.0) pg MCHC 32.0 (31.0-37.0) g/dL RDW 15.5 (11.5-15.5) % Plt Count 126 L (150-450) k/uL MPV 9.1 Neutrophils % 76 % Lymphocytes % 14 % Monocytes % 4 % Eosinophils % 5 % Basophils % 1 % Neutrophils # 5.3 (1.3-7.7) k/uL Lymphocytes # 1.0 (1.0-4.8) k/uL Monocytes # 0.3 (0-1.0) k/uL Eosinophils # 0.4 (0-0.7) k/uL Basophils # 0.0 (0-0.2) k/uL PT 14.6 H (10.0-12.5) sec INR 1.4 H (<1.2) APTT 35.2 H (22.0-30.0) sec Sodium (137-145) mmol/L Potassium (3.5-5.1) mmol/L Chloride (98-107) mmol/L Carbon Dioxide (22-30) mmol/L Anion Gap mmol/L BUN (7-17) mg/dL Creatinine (0.52-1.04) mg/dL Est GFR (CKD-EPI)AfAm (>60 ml/min/1.73 sqM) Est GFR (CKD-EPI)NonAf (>60 ml/min/1.73 sqM) Glucose (74-99) mg/dL Plasma Lactic Acid Mario (0.7-2.0) mmol/L Calcium (8.4-10.2) mg/dL Magnesium (1.6-2.3) mg/dL Total Bilirubin (0.2-1.3) mg/dL AST (14-36) U/L ALT (4-34) U/L Alkaline Phosphatase (38-126) U/L Troponin I (0.000-0.034) ng/mL Total Protein (6.3-8.2) g/dL Albumin (3.5-5.0) g/dL Urine Color Colorless Urine Appearance Clear (Clear) Urine pH 5.5 (5.0-8.0) Ur Specific Connelly 1.002 (1.001-1.035) Urine Protein Negative (Negative) Urine Glucose (UA) Negative (Negative) Urine Ketones Negative (Negative) Urine Blood Negative (Negative) Urine Nitrite Negative (Negative) Urine Bilirubin Negative (Negative) Urine Urobilinogen <2.0 (<2.0) mg/dL Ur Leukocyte Esterase Trace H (Negative) Urine RBC <1 (0-5) /hpf Urine WBC 4 (0-5) /hpf Ur Squamous Epith Cells <1 (0-4) /hpf Urine Bacteria Many H (None) /hpf Influenza Type A (PCR) (Not Detectd) Influenza Type B (PCR) (Not Detectd) RSV (PCR) (Not Detectd) SARS-CoV-2 (PCR) (Not Detectd) 05/06/24 05/06/24 05/06/24 Range/Units 13:49 13:49 13:49 WBC (3.8-10.6) k/uL RBC (3.80-5.40) m/uL Hgb (11.4-16.0) gm/dL Hct (34.0-46.0) % MCV (80.0-100.0) fL MCH (25.0-35.0) pg MCHC (31.0-37.0) g/dL RDW (11.5-15.5) % Plt Count (150-450) k/uL MPV Neutrophils % % Lymphocytes % % Monocytes % % Eosinophils % % Basophils % % Neutrophils # (1.3-7.7) k/uL Lymphocytes # (1.0-4.8) k/uL Monocytes # (0-1.0) k/uL Eosinophils # (0-0.7) k/uL Basophils # (0-0.2) k/uL PT (10.0-12.5) sec INR (<1.2) APTT (22.0-30.0) sec Sodium 141 (137-145) mmol/L Potassium 3.7 (3.5-5.1) mmol/L Chloride 107 (98-107) mmol/L Carbon Dioxide 25 (22-30) mmol/L Anion Gap 9 mmol/L BUN 12 (7-17) mg/dL Creatinine 0.73 (0.52-1.04) mg/dL Est GFR (CKD-EPI)AfAm 89 (>60 ml/min/1.73 sqM) Est GFR (CKD-EPI)NonAf 77 (>60 ml/min/1.73 sqM) Glucose 109 H (74-99) mg/dL Plasma Lactic Acid Mario 1.4 (0.7-2.0) mmol/L Calcium 9.6 (8.4-10.2) mg/dL Magnesium 1.9 (1.6-2.3) mg/dL Total Bilirubin 1.4 H (0.2-1.3) mg/dL AST 25 (14-36) U/L ALT 17 (4-34) U/L Alkaline Phosphatase 77 (38-126) U/L Troponin I 0.021 (0.000-0.034) ng/mL Total Protein 7.3 (6.3-8.2) g/dL Albumin 4.6 (3.5-5.0) g/dL Urine Color Urine Appearance (Clear) Urine pH (5.0-8.0) Ur Specific Connelly (1.001-1.035) Urine Protein (Negative) Urine Glucose (UA) (Negative) Urine Ketones (Negative) Urine Blood (Negative) Urine Nitrite (Negative) Urine Bilirubin (Negative) Urine Urobilinogen (<2.0) mg/dL Ur Leukocyte Esterase (Negative) Urine RBC (0-5) /hpf Urine WBC (0-5) /hpf Ur Squamous Epith Cells (0-4) /hpf Urine Bacteria (None) /hpf Influenza Type A (PCR) (Not Detectd) Influenza Type B (PCR) (Not Detectd) RSV (PCR) (Not Detectd) SARS-CoV-2 (PCR) (Not Detectd) 05/06/24 Range/Units 13:49 WBC (3.8-10.6) k/uL RBC (3.80-5.40) m/uL Hgb (11.4-16.0) gm/dL Hct (34.0-46.0) % MCV (80.0-100.0) fL MCH (25.0-35.0) pg MCHC (31.0-37.0) g/dL RDW (11.5-15.5) % Plt Count (150-450) k/uL MPV Neutrophils % % Lymphocytes % % Monocytes % % Eosinophils % % Basophils % % Neutrophils # (1.3-7.7) k/uL Lymphocytes # (1.0-4.8) k/uL Monocytes # (0-1.0) k/uL Eosinophils # (0-0.7) k/uL Basophils # (0-0.2) k/uL PT (10.0-12.5) sec INR (<1.2) APTT (22.0-30.0) sec Sodium (137-145) mmol/L Potassium (3.5-5.1) mmol/L Chloride (98-107) mmol/L Carbon Dioxide (22-30) mmol/L Anion Gap mmol/L BUN (7-17) mg/dL Creatinine (0.52-1.04) mg/dL Est GFR (CKD-EPI)AfAm (>60 ml/min/1.73 sqM) Est GFR (CKD-EPI)NonAf (>60 ml/min/1.73 sqM) Glucose (74-99) mg/dL Plasma Lactic Acid Mario (0.7-2.0) mmol/L Calcium (8.4-10.2) mg/dL Magnesium (1.6-2.3) mg/dL Total Bilirubin (0.2-1.3) mg/dL AST (14-36) U/L ALT (4-34) U/L Alkaline Phosphatase (38-126) U/L Troponin I (0.000-0.034) ng/mL Total Protein (6.3-8.2) g/dL Albumin (3.5-5.0) g/dL Urine Color Urine Appearance (Clear) Urine pH (5.0-8.0) Ur Specific Connelly (1.001-1.035) Urine Protein (Negative) Urine Glucose (UA) (Negative) Urine Ketones (Negative) Urine Blood (Negative) Urine Nitrite (Negative) Urine Bilirubin (Negative) Urine Urobilinogen (<2.0) mg/dL Ur Leukocyte Esterase (Negative) Urine RBC (0-5) /hpf Urine WBC (0-5) /hpf Ur Squamous Epith Cells (0-4) /hpf Urine Bacteria (None) /hpf Influenza Type A (PCR) Not Detected (Not Detectd) Influenza Type B (PCR) Not Detected (Not Detectd) RSV (PCR) Not Detected (Not Detectd) SARS-CoV-2 (PCR) Not Detected (Not Detectd) Disposition Clinical Impression: Generalized weakness Disposition: HOME SELF-CARE Condition: Fair Instructions (If sedation given, give patient instructions): Fall Prevention for Older Adults (ED) Is patient prescribed a controlled substance at d/c from ED?: No Referrals: Sathya Roa MD [Primary Care Provider] - 1-2 days (Office left message regarding follow up appointment needed. ) [facility] [place] [NON-STAFF] - 05/07/24 (Referral was sent and they will phone you about a first visit.) Time of Disposition: 17:23
[2024-05-06 13:42] LABS: Appearance,Urine Clear (Clear); Bacteria,Urine Many /hpf; Bilirubin,Urine Negative (Negative); Blood,Urine Negative (Negative); Color,Urine Colorless; Glucose,Urine (UA) Negative (Negative); Ketones,Urine Negative (Negative); Leukocyte Esterase,Urine Trace (Negative); Nitrite,Urine Negative (Negative); PH, Urine 5.5 (5.0-8.0); Protein,Urine Negative (Negative); RBC,Urine <1 /hpf (0-5); Specific Gravity,Urine 1.002 (1.001-1.035); Squamous Epithelial Cell,Urine <1 /hpf (0-4); Urobilinogen,Urine <2.0 mg/dL (<2.0); WBC,Urine 4 /hpf (0-5)
[2024-05-06 14:04] LABS: Basophils % (A) 1 %; Eosinophils # (A) 0.4 k/uL (0-0.7); Eosinophils % (A) 5 %; HCT 43.6 % (34.0-46.0); HGB 13.9 gm/dL (11.4-16.0); Lymphocytes % (A) 14 %; MCH 29.8 pg (25.0-35.0); MCV 93.3 fL (80.0-100.0); Mean Platelet Volume 9.1; Monocytes # (A) 0.3 k/uL (0-1.0); Monocytes % (A) 4 %; Neutrophils # (A) 5.3 k/uL (1.3-7.7); Neutrophils % (A) 76 %; Platelet Count 126 k/uL (150-450); RBC 4.68 m/uL (3.80-5.40); RDW 15.5 % (11.5-15.5)
[2024-05-06 14:13] LABS: ALT 17 U/L (4-34); AST 25 U/L (14-36); African American GFR (CKD) 89 (>60 ml/min/1.73 sqM); Albumin 4.6 g/dL (3.5-5.0); Alkaline Phosphatase 77 U/L (38-126); Anion Gap 9 mmol/L; Blood Urea Nitrogen 12 mg/dL (7-17); Calcium 9.6 mg/dL (8.4-10.2); Carbon Dioxide 25 mmol/L (22-30); Chloride 107 mmol/L (98-107); Glucose 109 mg/dL (74-99); Magnesium 1.9 mg/dL (1.6-2.3); Non-African American GFR(CKD) 77 (>60 ml/min/1.73 sqM); Potassium 3.7 mmol/L (3.5-5.1); Sodium 141 mmol/L (137-145); Total Bilirubin 1.4 mg/dL (0.2-1.3); Total Protein 7.3 g/dL (6.3-8.2)
[2024-05-06 14:19] LABS: INR 1.4 (<1.2); Partial Thromboplastin Time 35.2 sec (22.0-30.0); Prothrombin Time 14.6 sec (10.0-12.5)
[2024-05-06 14:38] LABS: Influenza A Not Detected (Not Detectd); Influenza B Not Detected (Not Detectd); RSV Not Detected (Not Detectd)
--- NOTE | 2024-05-06 15:46 | CT ---
EXAMINATION TYPE: CT brain jeffery akers DATE OF EXAM: 05/06/2024 COMPARISON: Head CT dated 03/17/2021 CLINICAL INDICATION: Female, 83 years old with history of falls; [facility], Pt has had multiple falls the l ast couple of days. Pt complaining of lower back and hip pain. Pt not sure if she hit her head. Pt mayes s mild neck pain. Pt scab on her face from CA that is bleeding. TECHNIQUE: CT scan of the head and cervical spine are performed without contrast. CT DLP: 1406.[address] CTDI: mGy Automated exposure control for dose reduction was used. Findings: Head CT: The ventricles, basal cisterns and sulci over convexities are moderately to markedly enlarged consist ent with moderate to marked generalized atrophy. There is a remote large right frontal white matter infarct with ex vacuo dilatation of the right late ral ventricle. There is no shift of the midline structures. There is no acute intra or extra-axial hemorrhage. Posterior fossa including the brainstem, fourth ventricle and cerebellar pontine angles are grossly normal. The intraorbital contents appear normal and symmetric. Visualized paranasal sinuses are well aerated. The calvarium is intact. CT cervical spine: Craniovertebral junction relationships and prevertebral soft tissues are normal. The cervical vertebral segments are normal in height and alignment and there is no fracture subluxati on. There is moderate disc space narrowing and spondylosis at the C4-5, C5-6 and C6-7 levels. There is mi ld to moderate facet arthropathy in the upper cervical spine. There is moderate osteoarthritis of the uncovertebral joints in the mid to lower cervical spine. There is no bony encroachment of the cervical canal there is mild bony encroachment at the C4-5 level on the left. The paraspinal soft tissues unremarkable. IMPRESSION: 1. Head CT: No acute bleed or mass effect. Stable remote right frontal white matter infarct. 2. CT cervical spine: No acute trauma. Moderate degenerative disc disease and mild to moderate osteoa rthritic changes in the facet joints and uncovertebral joints as described above. [facility], , 05/06/2024 3:44 PM
--- NOTE | 2024-05-06 15:51 | CT ---
EXAMINATION TYPE: CT abdomen pelvis w con DATE OF EXAM: 05/06/2024 COMPARISON: None CLINICAL INDICATION: Female, 83 years old with history of falls; [facility], Pt has had multiple falls the l ast couple of days. Pt complaining of lower back and hip pain. Pt not sure if she hit her head. Pt mayes s mild neck pain. Pt scab on her face from CA that is bleeding. TECHNIQUE: Performed without Oral Contrast and with IV Contrast, patient injected with 100 ml mL of Isovue 300. CT DLP: 2984.[address] CTDI: mGy Automated exposure control for dose reduction was used. Findings: The lung bases are clear. The gallbladder is normal without distention, wall thickening, pericholecystic fluid or gallstones. T here is no biliary ductal dilatation. There is no focal mass or organomegaly involving the liver, pancreas, spleen or adrenal glands. There is no solid renal mass or hydronephrosis and there is homogeneous contrast enhancement of the r enal parenchyma. The caliber the abdominal aorta is normal is no retroperitoneal adenopathy or hemorr rodo. There is an IVC filter in satisfactory position. The bowel loops are normal in caliber and there is no evidence of dilatation or obstruction. No infla mmatory changes are identified in the bowel wall or mesentery. There is no free intraperitoneal air or fluid. No pelvic mass, free fluid, abscess or adenopathy. There is a small calcified uterine fibroid. The osseous structures and soft tissues are intact. There are no fractures of the hips, pelvis and vi sualized thoracic spine and lumbar spine. IMPRESSION: No acute abnormality seen. No acute inflammation in the pelvis. No evidence of acute trauma to the vi sualized spine, pelvis or hips. [facility], , 05/06/2024 3:49 PM
[2024-05-06 18:32] VITALS: BP 159/89; PULSE 90; RESP 18
== END 2024-05-06 18:32 | disposition home or self-care (01) ==
LOC: EC 12:20
DX: R53.1 Weakness (principal); Z79.01 Long term (current) use of anticoagulants; W19.XXXA Unspecified fall, initial encounter
CPT/HCPCS: 36415; 93005; 80053; 83605; 83735; 84484; 85025; 85610; 85730; 81001; 87636; 72125; 70450; 74177; 99284; Q9967